=== PATIENT | male | born 1955 | race Caucasian/White ===

== ENCOUNTER 2023-07-21 17:51 | Emergency (ER) | payer BC, SELFPAY ==
[2023-07-21 17:56] VITALS: BP 119/64
[2023-07-21 19:03] VITALS: BP 132/72
--- NOTE | 2023-07-21 19:10 | ED.GENMED ---
History of Present Illness
<Rashi Chicas PA-C - Last Filed: 07/21/23 20:28>
General
Chief Complaint: Breathing Problem
Source: patient
Exam Limitations: none
Time Seen by Provider: 07/21/23 18:40
Travel History
Have you had any contact with someone who has COVID-19?: No
Do you have any symptoms of coronavirus? Fever > 100 degrees, chills, cough, shortness of breath, sore throat, loss of taste or smell, muscle aches, or headache?: No
History of Present Illness
History of Present Illness:
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 He also notes vomiting. He last had a paracentesis about 3 weeks ago which 6 L were drained. He feels
like he needs more fluid drained. He feels short of breath secondary to the compression from his abdomen. No other complaints at this time
Past History
<Rashi Chicas PA-C - Last Filed: 07/21/23 20:28>
Past History
ED Past Medical History: Cancer (Pancreatic, colon), HTN, Hypothyroidism and Other (GI bleed, varices, gastric ulcer)
Social History
Tobacco: Former smoker
Phy Exam
<Rashi Chicas PA-C - Last Filed: 07/21/23 20:28>
Physical Exam
Physical Exam:
General: Cachectic appearing male vomiting upon entrance into the room
HEENT: Normocephalic mucosa dry
Heart: Regular rate and rhythm
Lungs: Clear no wheeze
Abdomen: Slightly distended but soft no significant tenderness noted
Extremities: No cyanosis
Scores
<Rashi Chicas PA-C - Last Filed: 07/21/23 20:28>
Heart Failure Risk
Heart Failure Risk Score: Not Applicable
Course
<Rashi Chicas PA-C - Last Filed: 07/21/23 20:28>
Orders/Labs/Results
Orders:
Orders
07/21/23 19:04
Complete Blood Count/With Diff Urgent
Comprehensive Metabolic Panel Urgent
Lipase Urgent
07/21/23 19:07
Ondansetron Orally Disint [Zofran Odt (Orally Disintegrating)] 4 mg PO NOW STA
07/21/23 19:15
Lactic Acid Q4H
Comment: CANCEL 2nd LACTIC ACID IF 1st LACTIC ACID IS LESS THAN 2
07/21/23 23:15
Lactic Acid Q4H
Comment: CANCEL 2nd LACTIC ACID IF 1st LACTIC ACID IS LESS THAN 2
Vital Signs
Initial and Last Documented VS:
Initial Vital Signs
Temp Pulse Resp BP Pulse Ox
97.7 F 72 20 119/64 99
07/21/23 17:56 07/21/23 17:56 07/21/23 17:56 07/21/23 17:56 07/21/23 17:56
Last Documented Vital Signs
Temp Pulse Resp BP Pulse Ox
97.7 F 68 14 96/51 100
07/21/23 17:56 07/21/23 20:00 07/21/23 20:00 07/21/23 20:03 07/21/23 19:04
<Linn Rehman MD - Last Filed: 07/21/23 20:25>
Orders/Labs/Results
Orders:
Orders
07/21/23 19:04
Complete Blood Count/With Diff Urgent
Comprehensive Metabolic Panel Urgent
Lipase Urgent
07/21/23 19:07
Ondansetron Orally Disint [Zofran Odt (Orally Disintegrating)] 4 mg PO NOW STA
07/21/23 19:15
Lactic Acid Q4H
Comment: CANCEL 2nd LACTIC ACID IF 1st LACTIC ACID IS LESS THAN 2
07/21/23 23:15
Lactic Acid Q4H
Comment: CANCEL 2nd LACTIC ACID IF 1st LACTIC ACID IS LESS THAN 2
Vital Signs
Initial and Last Documented VS:
Initial Vital Signs
Temp Pulse Resp BP Pulse Ox
97.7 F 72 20 119/64 99
07/21/23 17:56 07/21/23 17:56 07/21/23 17:56 07/21/23 17:56 07/21/23 17:56
Last Documented Vital Signs
Temp Pulse Resp BP Pulse Ox
97.7 F 68 14 96/51 100
07/21/23 17:56 07/21/23 20:00 07/21/23 20:00 07/21/23 20:03 07/21/23 19:04
<Rashi Chicas PA-C - Last Filed: 07/21/23 20:28>
MDM/Problems Addressed
Differential Diagnosis Includes:
Vomiting abdominal swelling. Question recurrent a ascites versus bowel obstruction versus pancreatitis. Check labs. Rhiannon ordered ODT. Patient's abdomen is not rigid there is no fever. Do not suspect SBP.
<Rashi Chicas PA-C - Last Filed: 07/21/23 20:28>
*Critical Care Note
Total Time (30-74mins, 75-104mins- exclusive of procedures): Not Applicable
<Rashi Chicas PA-C - Last Filed: 07/21/23 20:28>
Update Note
Update Note:
Patient refusing blood work he is refusing IV. He is requesting urgent paracentesis however I explained there is no justification for urgent paracentesis as he has no fever his abdomen exam is benign he is 100% on room air. He is vomiting there is
some red color to the vomit. Question possible upper GI bleeding or variceal bleeding as he has a history of this. Patient states he just had soup and this is his soup. He is denying any bleeding. He actually wants to go home. He states he will
rest here in the hospital I had a discussion about keeping him here overnight for treatment of his discomfort and nausea and potentially for a paracentesis in the morning. He does not want to wait here in the hospital. I also explained that he may
be bleeding and going home could be a detriment. He understood this. His daughter now accompanies him who also try to get the patient to stay. Patient signed AGAINST MEDICAL ADVICE.
Return precautions given. He will follow-up with his treating team
ED Attending Note
<Rashi Chicas PA-C - Last Filed: 07/21/23 20:28>
-
Portions of this chart may have been created with voice recognition software.� Occasional wrong word or��sound alike� substitutions may have occurred due to the inherent limitations of voice recognition software.
<Linn Rehman MD - Last Filed: 07/21/23 20:25>
ED Attending Note
Patient seen and examined by attending physician: Yes
ED Attending Note:
Case reviewed with J Luis REYES, I also sat down and spoke with patient encouraging him to stay overnight in the hospital. I am concerned as is the rest of our team, that his symptoms are more serious than just ascites, and he compensated overnight.
He is adamant about leaving the hospital and not staying here overnight, but does state that he will return in the morning for reassessment. Patient is overall comfortable in his breathing, speaks in full sentences. Vital signs noted. Again
emphasized to patient strong recommendation to allow us to do testing treatment and further care here.
Discharge Plan
Departure
Patient Disposition: Against Medical Advice
Date of Disposition: 07/21/23
Time of Disposition: 20:28
Patient with high blood pressure during this ER visit?: No
Discharge Problem:
Vomiting
Prescriptions:
No Action
sertraline 100 MG tablet
150 mg PO DAILY
levothyroxine 50 mcg tablet
50 mcg PO DAILY
furosemide 20 mg tablet
40 mg PO DAILY
pantoprazole 40 mg tablet,delayed release (DR/EC)
40 mg PO BID
Referrals:
Jah Lyons MD [Family Provider] -
Activity Restrictions/Additional Instructions:
Please return here for worsening symptoms
Interventions
Interventions:
*Risk Screen - Suicide Last Done: 07/21/23 17:56
*General Assessment Last Done: 07/21/23 17:56
*Neglect/Abuse Screening Last Done: 07/21/23 17:56
ED- Fall Risk Assessment Last Done: 07/21/23 19:06
ED- Cardiac Assessment Last Done: 07/21/23 19:06
ED- Pulmonary Assessment Last Done: 07/21/23 19:06
Discharge Date and Time
Print Language: SWEDISH
[2023-07-21] MEDS: ZOFRAN ODT (ORALLY DISINTEGRATING) 4 MG PO ×2 (19:21→21:16)
[2023-07-21 20:02] VITALS: BP 96/51
[2023-07-21 20:03] VITALS: BP 96/51
== END 2023-07-21 21:45 | disposition left against medical advice (07) ==
LOC: EMR 17:51
PROVIDERS: EMERGENCY PHYSICIAN Emergency Medicine; FAMILY PHYSICIAN Internal Medicine
DX: R11.10 Vomiting, unspecified (principal); R06.02 Shortness of breath; R64 Cachexia; R14.0 Abdominal distension (gaseous); Z53.29 Procedure and treatment not carried out because of patient's decision for other reasons; C25.9 Malignant neoplasm of pancreas, unspecified; I10 Essential (primary) hypertension; E03.9 Hypothyroidism, unspecified; F32.A Depression, unspecified; Z85.038 Personal history of other malignant neoplasm of large intestine; Z87.11 Personal history of peptic ulcer disease; Z87.891 Personal history of nicotine dependence
CPT/HCPCS: 99283

== ENCOUNTER 2023-07-23 07:59 | Inpatient (IN) | payer BC, MEDICARE, SELFPAY ==
[2023-07-23] VITALS (43 sets, daily range): BP systolic 70–124; BP diastolic 54–71; BMI 18.4
[2023-07-23] MEDS: ZOFRAN ODT (ORALLY DISINTEGRATING) 4 MG PO ×2 (04:17→05:25)
--- NOTE | 2023-07-23 04:45 | ED.GENMED ---
History of Present Illness
<Wily Granado DO - Last Filed: 07/23/23 06:19>
General
Chief Complaint: Abdominal Symptoms
Source: patient and ambulance crew
Exam Limitations: none
Time Seen by Provider: 07/23/23 04:18
Nursing documentation reviewed up to this point in time: agreed with
Travel History
Have you had any contact with someone who has COVID-19?: No
Do you have any symptoms of coronavirus? Fever > 100 degrees, chills, cough, shortness of breath, sore throat, loss of taste or smell, muscle aches, or headache?: No
History of Present Illness
History of Present Illness:
68-year-old male presents via EMS for persistent nausea and vomiting. Patient has a history of pancreatic cancer and states that he frequently gets nauseated. Patient has a neuroendocrine pancreatic tumor. He gets his treatment at [facility]
in [place]. Patient typically has paracenteses. Last 1 was several weeks ago where he had 6 L drained. Patient feels that he needs to be drained again.
Past History
<Wily Granado DO - Last Filed: 07/23/23 06:19>
Past History
ED Past Medical History: Cancer (Pancreatic, colon), HTN, Hypothyroidism and Other (GI bleed, varices, gastric ulcer)
Social History
Tobacco: Former smoker
Phy Exam
<Wily Granado DO - Last Filed: 07/23/23 06:19>
General Physical Exam
General Presentation: mild distress
General Skin: warm and pale
General Hydration: appears well hydrated
Pulmonary Exam
Pulmonary Exam: lungs clear and no respiratory distress
Gastrointestinal Exam
Gastrointestinal Exam: normal bowel sounds, distended and guarding
Auscultation of Abdomen: normal
Liver Exam: ascites
Neurological Exam
Neurological Exam: alert and oriented x3
Musculoskeletal Exam
Musculoskeletal Exam: full ROM
Skin Exam
Skin Exam: warm/dry and pallor
Psychiatric Exam
Psychiatric Exam: normal mood/affect
Course
<Wily Granado, DO - Last Filed: 07/23/23 06:19>
Orders/Labs/Results
Orders:
Orders
07/23/23 04:15
Ondansetron Orally Disint [Zofran Odt (Orally Disintegrating)] 4 mg .ROUTE .STK-MED ONE
07/23/23 04:17
Ondansetron Orally Disint [Zofran Odt (Orally Disintegrating)] 4 mg PO NOW STA
07/23/23 04:44
Ondansetron Orally Disint [Zofran Odt (Orally Disintegrating)] 4 mg PO NOW STA
07/23/23 05:26
Urinalysis Reflex To Culture Urgent
Date Specimen was Collected: 07/23/23
Time Specimen was Collected: 06:58
07/23/23 06:06
Consult Interventional Radiology [IRAD CONSULT] Urgent
Consulting Provider: Filiberto Courtney
Was physician already notified: No
Reason for Consult/Procedure: paracentesis
Acknowledgement that appropriate orders are entered: Yes
07/23/23 06:07
Consult Notification Routine
Specialty to Notify: IRAD (Interventional Radiology)
07/23/23 06:08
Complete Blood Count/With Diff Urgent
Comprehensive Metabolic Panel Urgent
Lipase Urgent
07/23/23 06:32
* Blood Bank Products Urgent
Blood Bank Products: *Packed RBC Leuko(PRBC's)
Quantity: 2
Transfuse Today: Yes
Reason: Anemia
Type And Crossmatch Urgent
07/23/23 06:33
Pantoprazole [Protonix IV] 80 mg IV NOW STA
07/23/23 07:12
Ondansetron Injectable [Zofran] 4 mg IV NOW STA
Abnormal Lab Results
07/23/23
06:08
WBC 11.3 H 10^3/uL
(4.8-10.8)
RBC 2.65 L 10^6/uL
(4.70-6.10)
Hgb 6.0 L* g/dL
(13.0-18.0)
Hct 18.3 L* %
(39.0-52.0)
MCV 69.1 L fL
(80.0-94.0)
MCH 22.6 L pg
(27.0-31.0)
MCHC 32.8 L g/dL
(33.0-37.0)
RDW 22.6 H %
(11.5-14.5)
Plt Count 422 H 10^3/uL
(130-400)
Abs Immat Gran (auto) 0.1 H 10^3/uL
(0-0.05)
Absolute Neuts (auto) 9.9 H 10^3/uL
(1.4-6.5)
Absolute Lymphs (auto) 0.4 L 10^3/uL
(1.2-3.4)
Absolute Monos (auto) 0.9 H 10^3/uL
(0.1-0.6)
Neutrophils % 87.6 H %
(42.2-75.2)
Lymphocytes % 3.4 L %
(20.5-51.1)
Sodium 131 L mmol/L
(135-145)
Chloride 94 L mmol/L
(98-107)
BUN 39 H mg/dl
(9-20)
Glucose 146 H mg/dl
(70-99)
Albumin 2.9 L g/dl
(3.5-5.0)
07/23/23 06:08
07/23/23 06:08
Vital Signs
Initial and Last Documented VS:
Initial Vital Signs
Pulse Resp BP Pulse Ox
75 20 124/71 100
07/23/23 04:08 07/23/23 04:08 07/23/23 04:08 07/23/23 04:08
Last Documented Vital Signs
Pulse Resp BP Pulse Ox
67 20 105/65 98
07/23/23 06:26 07/23/23 06:26 07/23/23 06:26 07/23/23 06:26
<Binh Alvarado, DO - Last Filed: 07/23/23 07:17>
Orders/Labs/Results
Orders:
Orders
07/23/23 04:15
Ondansetron Orally Disint [Zofran Odt (Orally Disintegrating)] 4 mg .ROUTE .ST-MED ONE
07/23/23 04:17
Ondansetron Orally Disint [Zofran Odt (Orally Disintegrating)] 4 mg PO NOW STA
07/23/23 04:44
Ondansetron Orally Disint [Zofran Odt (Orally Disintegrating)] 4 mg PO NOW STA
07/23/23 05:26
Urinalysis Reflex To Culture Urgent
Date Specimen was Collected: 07/23/23
Time Specimen was Collected: 06:58
07/23/23 06:06
Consult Interventional Radiology [IRAD CONSULT] Urgent
Consulting Provider: Filiberto Courtney
Was physician already notified: No
Reason for Consult/Procedure: paracentesis
Acknowledgement that appropriate orders are entered: Yes
07/23/23 06:07
Consult Notification Routine
Specialty to Notify: IRAD (Interventional Radiology)
07/23/23 06:08
Complete Blood Count/With Diff Urgent
Comprehensive Metabolic Panel Urgent
Lipase Urgent
07/23/23 06:32
* Blood Bank Products Urgent
Blood Bank Products: *Packed RBC Leuko(PRBC's)
Quantity: 2
Transfuse Today: Yes
Reason: Anemia
Type And Crossmatch Urgent
07/23/23 06:33
Pantoprazole [Protonix IV] 80 mg IV NOW STA
07/23/23 07:12
Ondansetron Injectable [Zofran] 4 mg IV NOW STA
Abnormal Lab Results
07/23/23
06:08
WBC 11.3 H 10^3/uL
(4.8-10.8)
RBC 2.65 L 10^6/uL
(4.70-6.10)
Hgb 6.0 L* g/dL
(13.0-18.0)
Hct 18.3 L* %
(39.0-52.0)
MCV 69.1 L fL
(80.0-94.0)
MCH 22.6 L pg
(27.0-31.0)
MCHC 32.8 L g/dL
(33.0-37.0)
RDW 22.6 H %
(11.5-14.5)
Plt Count 422 H 10^3/uL
(130-400)
Abs Immat Gran (auto) 0.1 H 10^3/uL
(0-0.05)
Absolute Neuts (auto) 9.9 H 10^3/uL
(1.4-6.5)
Absolute Lymphs (auto) 0.4 L 10^3/uL
(1.2-3.4)
Absolute Monos (auto) 0.9 H 10^3/uL
(0.1-0.6)
Neutrophils % 87.6 H %
(42.2-75.2)
Lymphocytes % 3.4 L %
(20.5-51.1)
Sodium 131 L mmol/L
(135-145)
Chloride 94 L mmol/L
(98-107)
BUN 39 H mg/dl
(9-20)
Glucose 146 H mg/dl
(70-99)
Albumin 2.9 L g/dl
(3.5-5.0)
07/23/23 06:08
07/23/23 06:08
Vital Signs
Initial and Last Documented VS:
Initial Vital Signs
Pulse Resp BP Pulse Ox
75 20 124/71 100
07/23/23 04:08 07/23/23 04:08 07/23/23 04:08 07/23/23 04:08
Last Documented Vital Signs
Pulse Resp BP Pulse Ox
67 20 105/65 98
07/23/23 06:26 07/23/23 06:26 07/23/23 06:26 07/23/23 06:26
<Wily Granado DO - Last Filed: 07/23/23 06:19>
MDM/Problems Addressed
Differential Diagnosis Includes:
Ascites, now fluid overload, abdominal distention
MDM/Problems Addressed:
68-year-old male history of pancreatic neuroendocrine tumor,, bile duct stent, hypertension, hypothyroidism, rectal cancer, gastric varices, hyperlipidemia, mild hyperglycemia, gastric ulcers
Chronic conditions affecting care:
See above
<Wily Granado DO - Last Filed: 07/23/23 06:19>
*Pulse Oximetry
Patient hypoxic: no
*Critical Care Note
Total Time (30-74mins, 75-104mins- exclusive of procedures): Not Applicable
<Wily Granado DO - Last Filed: 07/23/23 06:19>
Patient Management
Social determinants of health affecting care: Poor social support
<DO Vickey Farmer Last Filed: 07/23/23 06:19>
Update Note
Update Note:
07/23/2023 0446 AM: Patient is refusing IV access. He is also refusing blood work stating that he is a 'tough stick '. Patient does want paracentesis and though I would agree that he needs it, he has no fevers and this problem is not acute. He is
satting normally on room air. Patient will consider getting blood work.
<Binh Alvarado, DO - Last Filed: 07/23/23 07:17>
Update Note
Update Note:
07/23/2023 0446 AM: Patient is refusing IV access. He is also refusing blood work stating that he is a 'tough stick '. Patient does want paracentesis and though I would agree that he needs it, he has no fevers and this problem is not acute. He is
satting normally on room air. Patient will consider getting blood work.
The patient has hemoglobin of 6.0 today. Hemoglobin last September was 7.1. I performed digital rectal examination and this was briskly heme positive very dark brown stool. Will give a dose of Protonix. Planning blood transfusion.
ED Attending Note
<Wily Granado, DO - Last Filed: 07/23/23 06:19>
-
Portions of this chart may have been created with voice recognition software.� Occasional wrong word or��sound alike� substitutions may have occurred due to the inherent limitations of voice recognition software.
Discharge Plan
Departure
Prescriptions:
No Action
sertraline 100 MG tablet
150 mg PO DAILY
levothyroxine 50 mcg tablet
50 mcg PO DAILY
furosemide 20 mg tablet
40 mg PO DAILY
pantoprazole 40 mg tablet,delayed release (DR/EC)
40 mg PO BID
Referrals:
NONE,* [Family Provider] -
Interventions
Interventions:
*Risk Screen - Suicide Last Done: 07/23/23 04:08
*General Assessment Last Done: 07/23/23 04:08
*Neglect/Abuse Screening Last Done: 07/23/23 04:08
ED- Fall Risk Assessment Last Done: 07/23/23 04:08
*ED COVID-19 Vaccine History Last Done: 07/23/23 04:08
GI-Pzydvk-Hkqdafszkz Assessment Last Done: 07/23/23 04:19
Discharge Date and Time
Print Language: CITIZEN OF [place]
[2023-07-23 06:22] LABS: % Basophils 0.3 % (0-2); % Eosinophils 0.1 % (0-6); % Immature Granulocytes 0.4 % (0-0.5); % Lymphocytes 3.4 % (20.5-51.1); % Monocytes 8.2 % (1.7-9.3); % Neutrophils 87.6 % (42.2-75.2); Absolute Immature Granulocytes 0.1 10^3/uL (0-0.05); Absolute Lymphocytes 0.4 10^3/uL (1.2-3.4); Absolute Monocytes 0.9 10^3/uL (0.1-0.6); Absolute Neutrophils 9.9 10^3/uL (1.4-6.5); Mean Corp Hgb Conc. 32.8 g/dL (33.0-37.0); Mean Corpuscular Hgb 22.6 pg (27.0-31.0); Mean Corpuscular Volume 69.1 fL (80.0-94.0); Mean Platelet Volume 9.2 fL (7.4-10.4); Nucleated Red Blood Cells % 0 % (-); Platelet Count 422 10^3/uL (130-400); Red Blood Cell Count 2.65 10^6/uL (4.70-6.10); Red Cell Dist. Width 22.6 % (11.5-14.5); White Blood Cell Count 11.3 10^3/uL (4.8-10.8)
[2023-07-23 06:26] LABS: Hematocrit 18.3 % (39.0-52.0)
[2023-07-23 06:40] LABS: ALT (SGPT) < 10 U/L (0-50); AST (SGOT) 31 U/L (17-59); Albumin 2.9 g/dl (3.5-5.0); Alkaline Phosphatase 76 U/L (38-126); Blood Urea Nitrogen 39 mg/dl (9-20); Calcium 8.7 mg/dl (8.4-10.2); Carbon Dioxide 26 mmol/L (22-30); Chloride 94 mmol/L (98-107); Estimated Creatinine Clearance 78 ml/min; Glucose 146 mg/dl (70-99); Lipase 112 U/L (23-300); Sodium 131 mmol/L (135-145); Total Bilirubin 0.8 mg/dl (0.2-1.3); Total Protein 6.3 g/dl (6.3-8.2); eGFR > 60.00
[2023-07-23 06:59] LABS: Anisocytosis 2+; Microcytosis 1+; Normal RBC Morphology No
[2023-07-23 07:00] LABS: Acanthocytes 1+; Hypochromasia 1+; Target Cells 1+
[2023-07-23 07:02] LABS: Burr Cells 1+
[2023-07-23 07:05] LABS: Ovalocytes 1+
[2023-07-23] MEDS: ZOFRAN 4 MG IV ×2 (07:19→19:52)
[2023-07-23] MEDS: PROTONIX IV 80 MG IV (07:20)
[2023-07-23] MEDS: DILAUDID 1 MG IV (07:20)
--- NOTE | 2023-07-23 07:35 | EDRN ---
the pt was received from previous retail shift manager RN, the pt is resting in stretcher in the lowest position, side rails up x2, call tovar within reach, HOB elevated, the pt started to rip off cafeteria monitor and stated to this RN, 'You people need to
help me, i don't want this shit on and i need a paracentesis, and i am nauseous and i am in so much pain in my stomach', this RN attempted to calm the pt down and asked the pt if this RN could please place the pt back on the monitor and the pt was
compliant, this RN apologized to the pt for his frustration, the pt apologized to this RN, the pt was given Zofran IV for nausea, and Dilaudid IV for pain, the pt was compliant with this RN drawing blood, this RN orion and sent Type and Screen, VS
WNL, will continue to monitor the pt closely
--- NOTE | 2023-07-23 07:49 | EDRN ---
Dr. Avelar currently at the pts bedside speaking with the pt, this RN notified the provider that the pt is a tough stick, this RN notified the provider that the pt has a RAC #[address] however that is the only access that the pt has, this RN
discussed to Dr. Avelar about the pt needing blood products and this RN inquired about a midline, per provider a midline is to be placed
--- NOTE | 2023-07-23 07:51 | EDRN ---
IR team called this RN in regards to the pts paracentesis, verbal report given, the pt is to go up now, this RN discussed with the IR RN that the pt is ordered blood and per the IR RN their provider in IR wants the pt to come to IR now and have the
blood transfused after, this was relayed to Dr. Avelar
--- NOTE | 2023-07-23 07:52 | HPS.HSE ---
Addendum entered and electronically signed by Armin Avelar DO 07/23/23 14:02:
I spoke with gastroenterology, Dr. Garcia. Apparently she spoke with the patient's ex- who is the patient's decision maker. Apparently there was talks about hospice prior to this hospitalization. She still wants to pursue hospice and does
not want a transfer to tertiary care center. Hospice consult placed to discuss goals of care with family.
Original Note:
Family Physician
-
Family Physician: * NONE
Chief Complaint
-
Nausea and vomiting, ascites
History of Present Illness
68-year-old male with a history of neuroendocrine pancreatic cancer, presented to the emergency room on July 20 for evaluation of increased abdominal girth and vomiting. Refused labs and demanded paracentesis. Emergency room tried to convince him
to stay and get admitted to the hospital but he signed out AMA.
He returns to the emergency room today complaining of similar symptoms and is now willing to stay.
Admits to 10 pound weight loss over the past few months. Of note he is a very poor and limited historian and does not remember answers to multiple questions including details of his medical history.
Medical History
Past Medical History
Past Medical History: Reports Other
Additional Past Medical History:
Pancreatic neuroendocrine tumor involving pancreatic head
Gastroesophageal varices
Essential hypertension
Hypothyroidism
History of rectal cancer
Gastric ulcer
Colon polyps
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
Recurrent ascites
Past Surgical History: Reports Other
Additional Past Surgical History:
Rectal cancer resection low anterior, 2011
Ventral hernia repair 2013
Inguinal hernia repair 1955
Tongue reconstructive surgery 1962
Common bile duct stent
Social History
Tobacco: Former Smoker
Alcohol: None
Drug: None
Personal:
Living: Alone
Family History
Family History: Not pertinent
Allergies / Home Medications
Allergies reflects when Allergies were last updated in [employer].
Home Medications with original date entered in [employer]
Allergy/Medication List:
Allergies
Allergy/AdvReac Type Severity Reaction Status Date / Time
No Known Allergies Allergy Verified 07/23/23 04:08
Home Medications
sertraline 100 mg tablet 150 mg PO DAILY Mental Health/Anxiety 06/11/21
furosemide 20 mg tablet 40 mg PO DAILY Fluid Retention/Swelling 08/26/22
levothyroxine 50 mcg tablet 50 mcg PO DAILY Thyroid 08/26/22
pantoprazole 40 mg tablet,delayed release 40 mg PO BID Gastrointestinal Issue 09/11/22
Review of Systems
-
History Source: Patient
A 12 point ROS was completed and negative except as noted: Yes
Abdomen/GI: Reports Nausea and Vomiting
Physical Exam
Vital Signs
Vital Signs
Temp Pulse Resp BP Pulse Ox
98.1 F 78 16 110/64 100
07/23/23 07:45 07/23/23 07:45 07/23/23 07:45 07/23/23 07:45 07/23/23 07:45
Physical Exam
General: No Apparent Distress, Comfortable, Appears Chronically Ill and Other (Cachectic)
HEENT: NormoCephalic and Anicteric
Respiratory: Clear
Cardiac: S1/S2 and Regular Rhythm
GI: Soft, Tender and Distended
Genito-urinary: Deferred by me
Musculoskeletal: No Clubbing, No Cyanosis and No Edema
Skin: Warm and Dry
Neuro: AO x 3
Hematologic/Lymphatic: No Lymphadenopathy
Psych: Calm
Laboratory Results
-
07/23/23 06:08
07/23/23 06:08
Laboratory Results
Total Bilirubin 0.8 mg/dl (0.2-1.3) 07/23/23 06:08
AST 31 U/L (17-59) 07/23/23 06:08
ALT < 10 U/L (0-50) 07/23/23 06:08
Alkaline Phosphatase 76 U/L (38-126) 07/23/23 06:08
Lipase 112 U/L (23-300) 07/23/23 06:08
Impression/Plan
-
Acute GI bleed -heme positive stool noted in the emergency room. Relatively hemodynamically stable. Admit to IMU. N.p.o., consult GI. Etiology of GI bleed unclear, he does have a history of bleeding gastroesophageal varices as well as a gastric
ulcer.
Acute blood loss anemia -due to acute GI bleed. Hemoglobin 6.0. 2 units of blood for transfusion ordered by the emergency room. Baseline hemoglobin unknown but was 7.1 in September of last year. MCV 69.1 suggestive of iron deficiency anemia. Will
check anemia labs.
Hyponatremia -sodium 131. Etiology unclear but could be related to ascites, diuretic therapy, hypovolemia, etc. Check urine studies.
Pancreatic neuroendocrine tumor -treated at [facility] in [place].
Gastroesophageal varices
History of gastric ulcer
History of rectal cancer
Essential hypertension -relative hypotension, blood pressure 105/65. Hold antihypertensives for now.
Hypothyroidism -awaiting update of home medication list. Check TSH.
DNR -confirmed with patient.
[2023-07-23 08:18] LABS: Reticulocyte Count 2.9 % (0.4-2.8)
--- NOTE | 2023-07-23 08:26 | PHANOTE ---
Addendum entered by Jomar Fuller 07/23/23 09:18:
07/23/2023, pt. obtunded at time of interview but states that he has never taken Metformin 500 mg BID or Basaglar Kwikpen; pt. confused about his remaining meds. that he fills at the pharmacy.
Original Note:
07/23/2023, med rec tech, pt. in IRAD at time of interview; pt. manages their own meds.; [facility] records are outdated; used pharmacy fill data to compile a list of pt.'s meds.
--- NOTE | 2023-07-23 08:38 | EDRN ---
IR called this RN for report, VS stable, 2250 out, Right lateral wound site from paracentesis
[2023-07-23 08:44] LABS: Iron < 20 ug/dl (49-181)
--- NOTE | 2023-07-23 08:48 | EDRN ---
IV team is aware that the pt needs a midline placed, the pt has arrived back from IR, VS WNL, no c/o pain
[2023-07-23 08:57] LABS: Percent Saturation 7.99999 % (20-50); Total Iron Binding Capacity 250 ug/dl (261-462)
--- NOTE | 2023-07-23 09:02 | EDRN ---
the pts RAC #[address] was checked by this RN and the PIV flushes well with no s/s of phlebitis or infiltration however there is no blood return, this RN spoke with ER provider Dr. Alvarado and Dr. Avelar and it was discussed that the
blood will not be administered until midline is placed, this RN did try to attempt to place a second PIV however this RN was unsuccessful, IV team will be down to place midline
--- NOTE | 2023-07-23 09:04 | EDRN ---
this RN processed the pts orders, and this RN notified pharmacy
[2023-07-23 09:08] LABS: Body Fluid Mononuclear 23.7 %; Body Fluid Polymorphonuclear 76.3 %; Body Fluid WBC 5891 /CUMM
[2023-07-23 09:35] LABS: Ferritin 78.5 ng/ml (17.9-464.0)
[2023-07-23] MEDS: SANDOSTATIN 500.600000000000023 MCG IV ×2 (09:37→21:12)
[2023-07-23 09:38] LABS: Body Fluid Second Tech AMA
[2023-07-23] MEDS: PROTONIX 100 IV ×2 (09:38→19:45)
--- NOTE | 2023-07-23 09:40 | EDRN ---
Pantoprazole gtt, octreotide gtt, and IVF currently hung and running, the pt is resting in stretcher in the lowest position, side rails up x2, call tovar within reach, HOB elevated, VS WNL, will continue to monitor the pt closely
[2023-07-23] MEDS: NSS 1000 IV ×2 (09:41→19:45)
[2023-07-23 10:07] LABS: Folate 11.2 ng/ml (2.76-20); Vitamin B12 959 pg/ml (239-931)
--- NOTE | 2023-07-23 10:09 | CON.GI ---
Addendum entered and electronically signed by Gisell Garcia DO 07/23/23 13:29:
I saw and examined the patient.
The CLIP RIVETER or PA's note was reviewed and I agree with the note.
Comment: Smooth Batista is a very medically complex, 68 y.o. 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
involvement as well as non-cirrhotic portal HTN due to occlusion of SMV and resultant elevated portal pressures resulting in esophageal, gastric, duodenal and rectal varices and recurrent ascites who presents from home with nausea, vomiting and
abdominal distension.
On exam, patient appears chronically ill, cachectic, with temporal wasting. He is AAOx3, however, extremely poor historian and unable to provide any history. I was able to obtain extensive reports from recent admission at [facility] from
07/08-07/17, after initially presenting6 to [facility], found to be in septic and hemorrhagic shock with bacteremia, BCX+GPC, transferred to [facility] for higher level of care. He underwent EGD and Flex Sig on 07/08, evidence of esophageal, gastric and
duodenal varices, flex sig with melenic residue, unable to visualize fully to examine rectal varices. He then had a CTA on 07/09, followed by IR partial gastric artery emoblization of gastric tumor. Paracentesis performed was negative for SBP,
however, performed following administration of antibiotics. Cytology from ascitic fluid was negative. Ultimately, recommended he have PICC placed for prolonged abx and rehab, but patient refused and left AMA. He returns now with a hemoglobin of 6
-->5.8, dark heme positive stool, paracentesis performed with removal of 2250 cc of clear yellow ascitic fluid fluid, positive for SBP, with WBC 5891, +4,477 PMNS.
Recommendations:
-blood cultures
--Ascitic fluid + SBP, given high PMN count, needs imaging to rule out microperforation
--2g Ceftriaxone, 1.5 g/kg albumin day 1, 1g/kg on day 3
-hold diuretics and beta aidee
-PPI gtt, Octreotide gtt
-Blood transfusion for Hgb <7
-No plans for endoscopic intervention-- patient is extremely complex with multiple bleeding sources, would require transfer to tertiary care center for higher level of care. Ultimately need to discuss hospice vs. transfer. Can continue to support
him here while stable, however, need to establish patient and family wishes DARION, prior to patient further decompensating and becoming unstable
Addendum entered and electronically signed by Myesha Mckeon NP 07/23/23 10:55:
Per outpatient records he is on carvedilol 6.25 mg p.o. twice daily likely secondary to his portal hypertension and history of esophageal gastric varices.
Original Note:
Consultation
-
Date/Time Consultation Requested: 07/23/23
Date/Time Consultation Performed: 07/23/23 @ 9:45
Requesting Provider: Dr. Avelar
Performing Provider: WOOD Petty; Dr. Chaparrita Armas
Reason for Consultation: GI bleed, ascites
Medical History
Chief Complaint / HPI
Chief Complaint: nausea, vomiting, abdominal distention
History of Present Illness:
The patient is a 68-year-old male with a past medical history significant for pancreatic neuroendocrine tumor diagnosed in June 2021 status post placement of biliary stent followed at [facility] with Dr. Koby King, esophageal varices with
bleeding, gastric varices, hypertension, hypothyroidism, recurrent ascites undergoing paracentesis at least once monthly at [facility], history of rectal cancer, who presented to the emergency room with complaints of nausea, vomiting, and abdominal
distention. We are being asked to evaluate for concern for GI bleed and ascites. Upon review of prior records, the patient was admitted last August secondary to hematemesis with concern for acute bleeding. He had 3 columns of large esophageal
varices along with gastric varices extending along the lesser curvature of the stomach. At that time no intervention was done and he was continued on octreotide infusion. He was transferred to [facility] for further intervention given the presence
of gastric varices. He reportedly did not undergo TIPS procedure at that time instead was treated with banding for esophageal varices and cyanoacrylate injection. He presented again in September with recurrent hematemesis. He underwent urgent EGD
which did show recurrent esophageal varices with ulceration from prior banding along with a large adherent clot with active bleeding from the ulcerated area which then again was banded and clipped. He did again have a presence of gastric varices in
the fundus though not actively bleeding. He again was continued on PPI drip and octreotide drip and again transferred to [facility] to consider TIPS procedure. He did also have evidence of portal hypertension thought to be secondary to portal and
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 He did undergo EUS/ERCP June 2021 which showed a mass in the pancreatic head stage T2 N0 MX by endosonographic criteria along with dilation of the
common bile duct up to 14 mm with ascites found endosonographically in the peritoneal cavity. ERCP showed a proximal CBD stricture status post and stent placement. Pathology consistent with well-differentiated pancreatic neuroendocrine tumor, CBD
brushings negative for malignant cells. The patient is a very poor historian but presented with complaints of nausea, vomiting, and abdominal distention. Several days ago he had called our office requesting an urgent paracentesis and he was
referred to the emergency room for further evaluation given reported shortness of breath and his complex medical history. ER records indicate he was seen in the emergency room but refused care and signed out AMA. He presents again with recurrent
similar complaints including significant abdominal distention. He is an extremely poor historian but notes that he was not feeling well prior to coming into the emergency room experiencing nausea with vomiting. He denies any hematemesis or other
signs of bleeding. He notes that his abdomen was more distended than usual but he does undergo paracentesis about once a month at [facility]. He follows with Dr. Koby King regarding care for his pancreatic tumor, which he reports he is
on Sandostatin for. Other history is difficult to obtain as he is in and out of sleeping. He denies any significant complaints of pain, dysphagia, or nausea currently He denies any obvious signs of bleeding such as melena or hematochezia. Per
nursing he did vomit once in the emergency room which was bilious in color. He reports his last colonoscopy was done within the last year but does not recall when or the results. As noted above he did report that he had an endoscopy about 1 month
ago out of [facility]. ER records indicate he did have dark brown but briskly heme positive stool. He underwent paracentesis with 20 to 50 mL removed with clear yellow ascitic fluid but with fluid cell counts concerning for SBP with white
blood cells of 5891 and PMN 76.3%. He was placed on octreotide and PPI drip given his hemoglobin of 6.0 and heme positive stool. Other pertinent lab findings included sodium 131, BUN 39, creatinine 0.7, serum iron less than 20, iron saturation
7.9, ferritin 78.5, lipase 112, blood WBC 11.3, MCV 69.1, platelets 422,000, reticulocyte count 2.9. 2 units of packed red blood cells were ordered and are pending. He was being admitted for further evaluation by GI for concern of GI bleed.
Past Medical History
Past Medical History: Cancer (History of rectal cancer status post lower anterior resection in 2011), GERD, HTN, Hypothyroidism and Other (Pancreatic neuroendocrine tumor followed at [facility], gastric varices, esophageal varices requiring
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
Past Surgical History: Bowel Resection (Lower anterior resection in 2011) and Other (Ventral hernia repair, inguinal hernia repair, tongue reconstruction surgery, CBD stent placement)
Social History
Tobacco: Former Smoker
Alcohol: None
Drug: None
Personal:
Family History
Family History: Reviewed & Not Pertinent
Allergies / Home Medications
Allergy/AdvReac Type Severity Reaction Status Date / Time
No Known Allergies Allergy Verified 07/23/23 04:08
�Medication �Instructions �Recorded
carvedilol 6.25 mg tablet 6.25 mg PO BID 07/23/23
diphenoxylate-atropine 2.5 1 tab PO QIDPRN PRN diarrhea 07/23/23
mg-0.025 mg tablet
furosemide 40 mg tablet 40 mg PO DAILY 07/23/23
levothyroxine 50 mcg tablet 50 mcg PO DAILY 07/23/23
pantoprazole 40 mg tablet,delayed 40 mg PO BID 07/23/23
release
sertraline 100 mg tablet 150 mg PO DAILY 07/23/23
Review of Systems
-
Unable to obtain full review of systems at this time due to: Acuity (Limited history from the patient)
History Source: Patient
All other systems: A 12 pt ROS was Negative except as stated above in HPI
Vital Signs
Temp Pulse Resp BP Pulse Ox
97.9 F 68 10 108/63 95
07/23/23 08:00 07/23/23 08:50 07/23/23 08:50 07/23/23 08:50 07/23/23 08:50
Physical Exam
Exam
General: Comfortable and Other (Extremely cachectic, pale, chronically ill-appearing male in no acute distress, )
HEENT: Normocephalic, Anicteric and Atraumatic
Respiratory: Clear (Overall diminished breath sounds, with mild labored breathing pattern)
Cardiac: S1/S2 and Regular Rhythm
Breast: Deferred by me
GI: Soft, Non Tender, Normal Bowel Sounds, Distended, Flat and Other
Rectal: Deferred by Provider and Other (Dark brown heme positive per ER rectal exam)
Musculoskeletal: No Edema
Skin: Warm and Dry
Neuro: Other (Oriented to person/place/time, drowsy but arousable)
Psych: Calm
Results
WBC 11.3 10^3/uL (4.8-10.8) H 07/23/23 06:08
Hgb 6.0 g/dL (13.0-18.0) L* 07/23/23 06:08
Hct 18.3 % (39.0-52.0) L* 07/23/23 06:08
MCV 69.1 fL (80.0-94.0) L 07/23/23 06:08
Plt Count 422 10^3/uL (130-400) H 07/23/23 06:08
Absolute Neuts (auto) 9.9 10^3/uL (1.4-6.5) H 07/23/23 06:08
Sodium 131 mmol/L (135-145) L 07/23/23 06:08
Potassium 4.0 mmol/L (3.5-5.1) 07/23/23 06:08
Chloride 94 mmol/L (98-107) L 07/23/23 06:08
Carbon Dioxide 26 mmol/L (22-30) 07/23/23 06:08
BUN 39 mg/dl (9-20) H 07/23/23 06:08
Creatinine 0.7 mg/dL (0.7-1.3) 07/23/23 06:08
Calcium 8.7 mg/dl (8.4-10.2) 07/23/23 06:08
Total Bilirubin 0.8 mg/dl (0.2-1.3) 07/23/23 06:08
AST 31 U/L (17-59) 07/23/23 06:08
ALT < 10 U/L (0-50) 07/23/23 06:08
Alkaline Phosphatase 76 U/L (38-126) 07/23/23 06:08
Lipase 112 U/L (23-300) 07/23/23 06:08
Diagnostic Image Results:
07/23/23 paracentesis: 2250mL clear ascitic fluid removed; fluid cell counts WBC 5891, PMN 76.3%
Prior GI Procedures:
EGD: 1 month ago at [facility] per pt (record not available to me)
09/15/2022, Dr. Tobar: Grade 2 esophageal varices found in the middle third of the esophagus and in the lower third of the esophagus with large amount of clot and ulcerated area from prior banding. Gastric varices and clot in the fundus although
likely not source of bleeding. No specimens collected.
08/25, Dr. Emil: Large greater than 5 mm esophageal varices with no bleeding and no stigmata of recent bleeding. Type I gastroesophageal varices extending along the lesser curvature without bleeding, but with recent stigmata of hemorrhage seen
from the cardiac side. Portal hypertensive gastropathy. Nodule found in the duodenum. No specimens collected.
06/11/2021, Dr. Lopez: 1 column of grade 2 esophageal varices. Small hiatal hernia. Portal hypertensive gastropathy. Erythematous duodenopathy with erosions. Random biopsies negative for celiac, H. pylori, or intestinal metaplasia of the stomach.
Colonoscopy: 06/11/2021, Dr. Lopez: Diminutive polyp at the rectosigmoid colon removed with jumbo cold forceps. Biopsies taken. Intrarectal prolapse. Random colon biopsies negative for collagenous colitis or other colitis. Rectal polypectomy
showing a tubular adenoma.
Assessment / Plan
-
The patient is a 68-year-old male with a past medical history significant for pancreatic neuroendocrine tumor diagnosed in June 2021 status post placement of biliary stent followed at [facility] with Dr. Koby King, esophageal varices with
bleeding, gastric varices, hypertension, hypothyroidism, recurrent ascites undergoing paracentesis at least once monthly at [facility], history of rectal cancer, who presented to the emergency room with complaints of nausea, vomiting, and abdominal
distention. We are being asked to evaluate for concern for GI bleed and ascites. 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
currently at [facility] with Dr. King. He has had recurrent admissions here last year for GI bleeding secondary to bleeding esophageal and gastric varices status post banding. He had was sent to [facility] for TIPS evaluation but is unclear as to
the results of this evaluation. He presents again today with nausea, vomiting, and abdominal distention found to have a hemoglobin of 6.0. He was placed on octreotide and PPI drip given his history of bleeding varices. Currently he is
hemodynamically stable pending blood transfusion. He underwent paracentesis for 2250 mL of clear ascitic fluid removed which is concerning for SBP given the significantly elevated WBC counts. He is lethargic but arousable and oriented. He denies
alcohol use
Problem list:
-Nausea, vomiting
-Abdominal distention, secondary to ascites with monthly paracentesis
-Severe microcytic anemia
-Leukocytosis
-History of bleeding esophageal and gastric varices
-History of pancreatic neuroendocrine tumor following with [facility] Dr. King
-Hyponatremia
-Severe iron deficiency
-Elevated BUN
-History of gastric ulcer
-History of portal and splenic vein thrombosis
Other pertinent medical history:
-Hypothyroidism
-Hypertension
-History of rectal cancer status post resection
-Portal hypertension
Recommendations:
-Etiology of anemia concerning for upper GI bleed given history of gastric and esophageal varices with dark brown heme positive stool. There is likely an chronic component to his anemia given his chronic medical problems. Reassuringly there is no
evidence of grossly active bleeding at this time, although given his drop of hemoglobin although we cannot rule out a slow bleed. He is overall hemodynamically stable.
-Agree with octreotide and PPI drip
-Close monitoring in the IMU. If any instability should be monitored in the ICU.
-Trend H&H and transfuse for hemoglobin less than 7, he is pending transfusion of 2 units (per nurse awaiting midline placement)
-Continue n.p.o.
-Peritoneal fluid cell count consistent with SBP, started on ceftriaxone 2 g IV daily. Await cytology and fluid culture. Will also obtain records from [facility] to see what his last paracentesis fluid cells showed/if they have a recent cytology. I
did also order blood cultures prior to the initiation of antibiotics.
-Avoid blood thinning agents
-Will need to obtain records from [facility] given the complexity of his history, he may require transfer to a tertiary center
-PRN antiemetic
-Will review diuretic regimen with Dr. Armas, per outpatient records was on Lasix 40 mg daily.
-To consider eventual EGD once stabilized, or if any signs of brisk bleeding
-Will place a call to his ex- Halley whom he designates as his wash crew person.
-Monitor electrolytes.
-Check INR
-Will follow closely
Data Reviewed
-
Old Records: Reviewed
-
-
Thank you for consultation and allowing me to participate in the patient's care. Please call the homemaking rehabilitation consultant GI physician during the after hours with any questions or concerns.
[2023-07-23] MEDS: STERILE WATER FOR INJECTION 20 ML IV (10:33)
[2023-07-23] MEDS: ROCEPHIN 2000 MG IV (10:33)
--- NOTE | 2023-07-23 10:53 | EDRN ---
IV team currently at the pts bedside
--- NOTE | 2023-07-23 11:56 | EDRN ---
the pt is sleeping in stretcher in the lowest position, side rails up x2, call tovar within reach, HOB elevated, NSR in the 60's, no c/o chest pain, no c/o SOB, RA Sp02 95%, IV team was able to place midline in the LUE, limb alert band placed, this
RN will send for blood
[2023-07-23 12:10] LABS: Hematocrit 18.3 % (39.0-52.0); Hemoglobin 5.8 g/dL (13.0-18.0)
[2023-07-23 12:11] LABS: INR 1.29
--- NOTE | 2023-07-23 12:12 | EDRN ---
midline was not documented by IV team yet, LUE midline
--- NOTE | 2023-07-23 12:17 | EDRN ---
Hgb came back at 5.8, this RN notified provider, Blood currently transfusing, VS WNL, the pt offers no complaints at this time, this RN at the pts bedside closely monitoring the pt, Pantoprazole gtt and Octreotide gtt and IVF currently still running
via Right arm PIV's
--- NOTE | 2023-07-23 12:38 | CM ---
Smooth was seen in ED yesterday, however he signed out AMA shortly after his arrival. He returned today and is currently in the ED with blood being hung. Plan is for admission to IMU. I attempted to complete assessment, however Smooth was not
open to speaking at the time of my visit.
Call placed to his ex-/next of kin (Nano Gallardo) at [phone] and voicemail left requesting return call to complete initial assessment.
CM will follow.
[2023-07-23] MEDS: FLEXBUMIN 100 IV ×3 (13:50→17:25)
[2023-07-23] MEDS: FLEXBUMIN 50 IV (13:50)
--- NOTE | 2023-07-23 14:12 | W.PN.UPDATE ---
Update Note
Progress Note Update
Called patient's POA, Ex-, Nano Gallardo [phone] to discuss patients clinical status with regards to his medical complexity and incurable malignancy, with options of transferring to tertiary care center for higher level of care and any
potential interventions for ongoing GI bleeding vs. pursuing hospice care. Patient and family had already started to discuss hospice, and at this time she feels this is what Smooth would want as well. He is awake and alert but not oriented at this
time. Nano would like to speak with hospice and start the process of transitioning now. Will continue with medications and transfusions only until family speaks with hospice.
Nano asked that I alert patient's oncologist, Dr. King at [facility], of his admission and updates. I attempted to call at . I was unable to get through to any provider or messaging system.
I updated Dr. Avelar who will consult hospice.
--- NOTE | 2023-07-23 14:32 | CM ---
Order received for hospice care. Call placed to Smooth's ex- to discuss options. She was aware of plan for hospice, as she had spoken with MD prior to my call. She and her daughter will come to when they are able to; daughter is on her way
home at this time.
Plan: GIP hospice with Hospice
--- NOTE | 2023-07-23 14:44 | EDRN ---
the pt is sleeping in the stretcher in the lowest position, side rails up x2, call tovar within reach, HOB elevated, the pt does awaken to voice however the pt is lethargic, this RN noticed that oral contrast was ordered for a CT scan for the pt,
this RN spoke with Dr. Armas and Myesha Mckeon PATIENT REGISTRAR and notified them that the pt is too lethargic to drink currently, the pt stated to this RN that he doesn't feel he can drink anything right now and just wants to rest, VS WNL, NSR in the 60's, last
BP 102/60 (74), RA Sp02 96%, Octreotide gtt, Pantoprazole gtt, IVF, and Albumin all currently running, once Albumin is complete, this RN will hang the second unit of blood products for the pt, this RN notified the provider, will continue to monitor
the pt closely
--- NOTE | 2023-07-23 15:28 | EDRN ---
urinalysis obtained and sent
[2023-07-23 15:38] LABS: Osmolality Urine 646 mOsm/kg (300-900)
--- NOTE | 2023-07-23 15:42 | EDRN ---
verbal report called to the receiving unit nurse Sonia LACEY
[2023-07-23 15:47] LABS: Urine Sodium < 5 mmol/L (30-90)
--- NOTE | 2023-07-23 17:02 | PTCARENOTE ---
Received patient via stretcher from ER. Patient is awake, alert and oriented x3 upon arrival, only complaining of pain when he moves. Patient receiving IV Albumin and is due for a second unit of blood. Vital signs 105/63, normal sinus @ 62. Family
at bedside. Patient and family oriented to room and unit policies.
--- NOTE | 2023-07-23 19:05 | HOSPNOTE ---
Called the patients ex and left a message with call back numbers for hospice.
[2023-07-23] MEDS: COMPAZINE 5 MG IV (21:14)
--- NOTE | 2023-07-23 23:30 | PTCARENOTE ---
Pt received from previous shift in bed. Albumin completed upon walking rounds. AAOx3, forgetful, soft speech. Telemetry = SR. Full physical assessment documented (refer to worklist). Abdomen large, firm, distended, round, with protuberant
hernias present. Pt with c/o nausea, DEPARTMENT HELPER covering house contacted, electronic orders received for IV zofran (refer to MAR). NSS and Octreotide infusing via L midline without complication. Protonix gtt infusing via #22 RW (positional). VAT RN
contacted for additional PIV as pt is ordered PRBCs (RAC painful to flush). Pt continued w/nausea despite zofran, vomited small amount of dark bilious emesis. DEPARTMENT HELPER covering house contacted, orders changed to IV compazine (refer to MAR). Pt
verbalizes relief of N/V after compazine. PRBCs transfused without any sign/symptoms of reaction. Protective foams placed to thoracic spine. Sacral foam in place. Pt voided via urinal, orange/tea colored. Call tovar within reach. Plan of care
ongoing.
[2023-07-24] VITALS (9 sets, daily range): BP systolic 104–121; BP diastolic 64–79
[2023-07-24] MEDS: MELATONIN 5 MG PO (01:44)
--- NOTE | 2023-07-24 02:06 | PTCARENOTE ---
Pt requesting something to sleep, appears restless, removes BP cuff, pulse ox, tele leads. Pain assessed, pt states 'I just want to be able to sleep' TALEND DEVELOPER covering house contacted, electronic orders received for melatonin (refer to MAR). Will
monitor effectiveness.
--- NOTE | 2023-07-24 02:24 | PTCARENOTE ---
Pt with increasing restlessness, keeps ringing call tovar stating 'I can't sleep, this melatonin isn't working'. Up and down in bed. MARKETING FINANCIAL ANALYST covering house contacted, electronic order received for IV ativan, awaiting pharmacy verification.
[2023-07-24] MEDS: ATIVAN 0.5 MG IV ×2 (02:31→21:28)
[2023-07-24] MEDS: NSS (PRESERVATIVE FREE) 0.25 ML IV ×2 (02:31→21:28)
[2023-07-24] MEDS: PROTONIX 100 IV (05:19)
[2023-07-24 05:36] LABS: % Basophils 0.2 % (0-2); % Eosinophils 0.7 % (0-6); % Immature Granulocytes 0.7 % (0-0.5); % Lymphocytes 3.5 % (20.5-51.1); % Monocytes 6.5 % (1.7-9.3); % Neutrophils 88.4 % (42.2-75.2); Absolute Eosinophils 0.1 10^3/uL (0-0.7); Absolute Immature Granulocytes 0.1 10^3/uL (0-0.05); Absolute Lymphocytes 0.4 10^3/uL (1.2-3.4); Absolute Monocytes 0.7 10^3/uL (0.1-0.6); Absolute Neutrophils 9.1 10^3/uL (1.4-6.5); Mean Corp Hgb Conc. 32.5 g/dL (33.0-37.0); Mean Corpuscular Hgb 24.1 pg (27.0-31.0); Mean Corpuscular Volume 74.3 fL (80.0-94.0); Mean Platelet Volume 9.1 fL (7.4-10.4); Nucleated Red Blood Cells % 0.2 % (-); Platelet Count 317 10^3/uL (130-400); Red Blood Cell Count 3.23 10^6/uL (4.70-6.10); Red Cell Dist. Width 21.6 % (11.5-14.5); White Blood Cell Count 10.2 10^3/uL (4.8-10.8)
[2023-07-24 05:40] LABS: Hemoglobin 7.8 g/dL (13.0-18.0)
[2023-07-24 06:30] LABS: ALT (SGPT) < 10 U/L (0-50); AST (SGOT) 23 U/L (17-59); Albumin 3.2 g/dl (3.5-5.0); Alkaline Phosphatase 68 U/L (38-126); Blood Urea Nitrogen 30 mg/dl (9-20); Calcium 8.5 mg/dl (8.4-10.2); Carbon Dioxide 21 mmol/L (22-30); Chloride 100 mmol/L (98-107); Estimated Creatinine Clearance 77 ml/min; Glucose 140 mg/dl (70-99); Potassium 3.9 mmol/L (3.5-5.1); Sodium 134 mmol/L (135-145); Total Bilirubin 2.1 mg/dl (0.2-1.3); Total Protein 6.3 g/dl (6.3-8.2); eGFR > 60.00
--- NOTE | 2023-07-24 08:17 | W.PN.GI.CBS2 ---
Today's Communication / Plan
-
-- ascites studies to be completed - micro and lab studies and follow culture
-- hospice conversation
Assessment / Plan
-
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 Koby King, esophageal varices with
bleeding, gastric varices, hypertension, hypothyroidism, recurrent ascites undergoing paracentesis at least once monthly at [facility], history of rectal cancer, who presented to the emergency room with complaints of nausea, vomiting, and abdominal
distention. We are being asked to evaluate for concern for GI bleed and ascites. 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
currently at [facility] with Dr. King. He has had recurrent admissions here last year for GI bleeding secondary to bleeding esophageal and gastric varices status post banding. He had was sent to [facility] for TIPS evaluation but is unclear as to
the results of this evaluation. He presents again today with nausea, vomiting, and abdominal distention found to have a hemoglobin of 6.0. He was placed on octreotide and PPI drip given his history of bleeding varices. Currently he is
hemodynamically stable pending blood transfusion. He underwent paracentesis for 2250 mL of clear ascitic fluid removed which is concerning for SBP given the significantly elevated WBC counts. He is lethargic but arousable and oriented. He denies
alcohol use
Problem list:
-Nausea, vomiting
-Abdominal distention, secondary to ascites with monthly paracentesis
-Severe microcytic anemia
-Leukocytosis
-History of bleeding esophageal and gastric varices
-History of pancreatic neuroendocrine tumor following with [facility] onc[facility] Dr. King
-Hyponatremia
-Severe iron deficiency
-Elevated BUN
-History of gastric ulcer
-History of portal and splenic vein thrombosis
Other pertinent medical history:
-Hypothyroidism
-Hypertension
-History of rectal cancer status post resection
-Portal hypertension
Recommendations:
-Etiology of anemia concerning for upper GI bleed given history of gastric and esophageal varices with dark brown heme positive stool. There is likely an chronic component to his anemia given his chronic medical problems. Reassuringly there is no
evidence of grossly active bleeding at this time, although given his drop of hemoglobin although we cannot rule out a slow bleed. He is overall hemodynamically stable.
07/24/23:
#+SBP - received albumin yesterday 1.5g/kg and should get 1g/kg tomorrow (day #3)
-- he's on 2g of ceftriaxone - unfortunately the ordered micro and fluid studies weren't completed - cell count was done and significant
-- i spoke to micro and they can't see the orders since they weren't completed - will discuss with nurse and re-order if needed
--- patient without abdominal pain
-- holding bblocker
#anemia - no overt bleeding except his nose at this point; hemodynamically stable
-- may very well have slow oozing from portal hypertensive gastropathy
-- check indirect bili
-- responded to 2 u of blood
-- ok for BID ppi, continue octreotide for now
#poor prognosis
-- hospice appropriately consulted for inoperable pancreatic neuroendocrine tumor with multiple complications and GIB due to the portal hypertension caused by the surrounding venous clots
-- his ex- Halley whom he designates as his chip person.
Total Time Spent with Patient (in minutes): 20
Subjective
Subjective
Date of Service: July 24, 2023
patient sleepy and received ativan last night for sleep
Denies any bleeding or abdominal pain. Denies n/v
Objective
Data Reviewed
Laboratory Data:
Laboratory Results
07/24/23 05:19
07/24/23 05:19
Laboratory Results
PT 16.0 Sec (11.4-14.6) H 07/23/23 11:36
INR 1.29 07/23/23 11:36
Total Bilirubin 2.1 mg/dl (0.2-1.3) H D 07/24/23 05:19
AST 23 U/L (17-59) 07/24/23 05:19
ALT < 10 U/L (0-50) 07/24/23 05:19
Alkaline Phosphatase 68 U/L (38-126) 07/24/23 05:19
Lipase 112 U/L (23-300) 07/23/23 06:08
Vital Signs and I&O:
Vital Signs
Temp Pulse Resp BP Pulse Ox
97.6 F 68 16 107/79 100
07/24/23 03:20 07/24/23 08:00 07/24/23 08:00 07/24/23 06:00 07/24/23 08:00
I&O
07/23/23 07/24/23 07/25/23
06:59 06:59 06:59
Intake Total 2079 / 2079
Output Total 250 / 250
Balance 183 / 183
Physical Exam
Physical Exam
HEENT: Other (has dried blood in his nares)
GI: Soft, Distended, Non Tender and Fluid Wave
[2023-07-24 08:43] LABS: Direct Bilirubin 0.7 mg/dl (0.0-0.4)
[2023-07-24] MEDS: SANDOSTATIN 500.600000000000023 MCG IV ×2 (08:45→21:26)
--- NOTE | 2023-07-24 08:49 | HOSPNOTE ---
Addendum entered by Gardenia Kirkland RN 07/24/23 14:28:
In person introduction completed. Family was able to speak to patient and patient is agreeable to hospice. I spoke to Nano and Kayli and explained the different hospice options again. Attending does not believe patient will pass within the next week
and does not feel he is inpatient appropriate. Attending declined making patient comfort care and monitoring for the next 24 hours to see if patient became inpatient appropriate. At this time, attending is recommending SNF placement. CM updated and
will be in contact with family to discuss referrals ect. I left a voicemail for family to update based on conversation with attending. Primary nurse also updated.
Addendum entered by Gardenia Kirkland RN 07/24/23 09:33:
Update- Spoke to ex Nano. She and their daughter are coming to see patient today. She also spoke to attending and attending is not certain if patient would be agreeable to hospice. In person introduction arranged for today at 1130 am with
hospice. CM and Attending updated. Will provide updated after introduction is completed.
Original Note:
Referral received. I placed a call this morning to patients ex Nano. I left a voicemail with my phone number asking her to return my call to discuss hospice. Attending updated. Will update if a return phone call is received.
[2023-07-24 09:13] LABS: Body Fluid Albumin < 1.0 g/dl; Body Fluid LDH 277 U/L; Body Fluid Protein < 2.0 g/dl
--- NOTE | 2023-07-24 09:20 | W.PN.HOSP.TC ---
Today's Communication/Plan
-
Await hospice meeting
Assessment / Plan
Assessment / Plan
Gen-awake, NAD, cachectic
HEENT-NC, AT, anicteric, clear oral mm
Neck-supple
CV-reg, no M, +S1/S2
Lungs-clear B/L
Abd-soft, NT, ND
Ext-no edema
Musculoskeletal-no cyanosis, clubbing
Skin-warm and dry
Neuro-grossly non-focal
Psych-calm, cooperative
SBP -continue IV Rocephin. IV albumin.
Acute GI bleed -heme positive stool noted in the emergency room. Relatively hemodynamically stable. Last BM was recorded as brown stool. Not actively bleeding.
Acute blood loss anemia, acute on chronic anemia -due to acute GI bleed. Hemoglobin 6.0. 2 units of blood for transfusion ordered by the emergency room, hemoglobin 7.8 today. Baseline hemoglobin unknown but was 7.1 in September of last year. Iron
deficiency anemia noted on labs explaining chronic anemia.
Hyponatremia -sodium improved to 134. Etiology unclear but could be related to ascites, diuretic therapy, hypovolemia, etc. urine osmolality 646, urine sodium less than 5.
Resume diet today with fluid restriction.
Pancreatic neuroendocrine tumor -treated at [facility] in [place].
Gastroesophageal varices
History of gastric ulcer
History of rectal cancer
Essential hypertension -relative hypotension, blood pressure 105/65. Hold antihypertensives for now.
Hypothyroidism -awaiting update of home medication list. Check TSH.
DNR -confirmed with patient.
Goals of care discussed with patient and subsequently I spoke with ex- and daughter on the phone this morning.
Chandler tells me that he is not ready for hospice. He continues to want to treat his conditions and 'to get better'.
I spoke with ex- and daughter on the phone but they informed me that in the past Chandler has mentioned to them that he does want hospice. However he also mentions to family that he wants to continue paracentesis whenever needed. Therefore, I do
not think he is mentally ready for hospice, but will defer further hospice discussions to wood type cutter and patient and family.
Anticipated Discharge: 24 - 48 hours
Subjective/Interval History
-
Date of Service: July 24, 2023
Patient seen and examined. Had some nausea overnight. Currently feels better. No complaints.
Objective Data
-
Labs:
Laboratory Results
07/24/23
05:19
WBC 10.2
Hgb 7.8 L D
Hct 24.0 L
Plt Count 317 D
Sodium 134 L
Potassium 3.9
Chloride 100
Carbon Dioxide 21 L
BUN 30 H
Creatinine 0.7
Glucose 140 H
Calcium 8.5
Total Bilirubin 2.1 H D
AST 23
ALT < 10
Alkaline Phosphatase 68
Vital Signs:
Vital Signs
Temp Pulse Resp BP Pulse Ox
97.4 F 68 16 107/79 100
07/24/23 07:40 07/24/23 08:00 07/24/23 08:00 07/24/23 06:00 07/24/23 08:00
I&O
07/23/23 07/24/23 07/25/23
06:59 06:59 06:59
Intake Total 2079
Output Total 250 / 250
Balance 183 / 183
Review of Systems
-
History Source: Patient
All other systems: Reviewed and negative
--- NOTE | 2023-07-24 11:24 | PTCARENOTE ---
Pt unable to eat breakfast, states he has no appetite and can't keep anything down. Remains seated out in chair, slightly restless and vaguely uncomfortable saying he feels 'full' (not grasping severity of illness) states he 'might need another
thoracentisis.' VSS. Warm blankets provided, emotional support offered. Pt's ex will be in for meeting with hospice liaison at 11:30.
--- NOTE | 2023-07-24 12:18 | HOSPNOTE ---
This SN met with patient's ex Nano and daughter Kayli for a hospice intro. Discussed patient's current condition. Introduced to hospice and all questions were answered. Discussed qualifications of [facility], going to a shelter vs going home.
Stressed that should patient return home, he would need 24 hour care. Nano aware that private caregivers and shelter are self pay. They acknowledge that patient is difficult to deal with and they are not certain whether he is ready for hospice
yet. They are also wondering if patient is competent to make decisions for himself. Nano given all contact information for hospice. Emotional support was provided. Total time with them was 45 minutes.
Informal conference with nurse Khoury. Aware that patient had a recent episode of coffee ground emesis and increase agitation requiring ativan.
[2023-07-24] MEDS: STERILE WATER FOR INJECTION 20 ML IV (13:35)
[2023-07-24] MEDS: ROCEPHIN 2000 MG IV (13:37)
--- NOTE | 2023-07-24 14:10 | PTCARENOTE ---
Addendum entered by Peng Torrez RN 07/24/23 14:17:
This RN called Nano, she will go to his house and obtain current meds and provide updated med list to us.
Original Note:
Family in room with patient, have discussed together and agreed to hospice. Pt in agreement, nodded head 'yes' when asked if he wants to be made comfortable. Dr. Avelar notified, med surg orders rec'd. TT sent to hospice care transitions coordinator staff occupational therapist, will notify CM.
Pt will have to go to SNF according to attending as he is not actively dying at this time. Per attending,med list needs to be reconciled, will reach out to family.
--- NOTE | 2023-07-24 14:48 | PTCARENOTE ---
clean room [id number] assigned, will call report.
--- NOTE | 2023-07-24 14:57 | CM ---
CM reviewed pt with [facility]/ Hospice
Pt, ex-spouse and dtr in agreement with hospice
Pt not able to return home with hospice due to lack of care in home
Pt will require SNF
Conference call with ex-spouse and dtr to review
They will look into patient's finances to see what financial resources he has intact
They would like SNFs in [facility]
SNF list left bedside and also referred to Medicare.gov
Plan to follow up tomorrow on SNF choices and what options are financially appropriate
Hospice will continue to follow
CM consult for advanced directives- not provided as hospice has been elected
Discharge Disposition- SNF with hospice
--- NOTE | 2023-07-24 15:24 | PTCARENOTE ---
Report given to Berta Montano RN, pt updated and in agreement with transfer, stood and pivoted to stretcher, gait slow and steady but weak. Pt verbalized appreciation for care.
--- NOTE | 2023-07-24 15:45 | PTCARENOTE ---
Rec'd pt from IMU. Pt drowsy but arousable. No further updated noted with pt's assessment. Will cont to monitor.
[2023-07-24 15:51] LABS: Free T4 0.49 ng/dl (0.78-2.19)
[2023-07-24] MEDS: NSS (PRESERVATIVE FREE) 10 ML IV (19:56)
[2023-07-24] MEDS: PROTONIX IV 40 MG IV (20:05)
--- NOTE | 2023-07-24 21:38 | PTCARENOTE ---
Patient was agitated and restless, pulling gown off. Advised WOOD Kent. Orders received.
--- NOTE | 2023-07-24 22:10 | PTCARENOTE ---
Patient is refusing Telemetry. He is on [place] Advised WOOD Kent. Will place later if he changes his mind.
[2023-07-25 03:01] VITALS: BP 102/68
[2023-07-25 07:25] VITALS: BP 100/53
[2023-07-25] MEDS: NSS (PRESERVATIVE FREE) 10 ML IV ×2 (08:27→20:39)
[2023-07-25] MEDS: PROTONIX IV 40 MG IV ×2 (08:27→20:39)
[2023-07-25] MEDS: FLUSH (NSS) 2 FLUSH IV ×3 (08:29→11:37)
[2023-07-25 08:54] VITALS: BMI 18.4
[2023-07-25] MEDS: MIRALAX 17 GRAMS PO (10:01)
[2023-07-25] MEDS: COLACE 100 MG PO (10:01)
--- NOTE | 2023-07-25 10:39 | W.PN.HOSP.TC ---
Addendum entered and electronically signed by Armin Avelar DO 07/25/23 11:32:
Updated daughter on the phone regarding plan of care. All questions answered.
I explained that [facility] is not imminent and he is certainly not comatose and therefore does not qualify for inpatient hospice or comfort measures.
Needs placement in a fdc for hospice services.
Original Note:
Today's Communication/Plan
-
Obstruction series
N.p.o.
IV fluids
Paracentesis
Assessment / Plan
Assessment / Plan
Gen-awake, NAD, cachectic
HEENT-NC, AT, anicteric, clear oral mm
Neck-supple
CV-reg, no M, +S1/S2
Lungs-clear B/L
Abd-soft, tender and diffusely distended
Ext-no edema
Musculoskeletal-no cyanosis, clubbing
Skin-warm and dry
Neuro-grossly non-focal
Psych-calm, cooperative
Severe vomiting -feculent material today. Increasing abdominal distention. Concerning for bowel obstruction. N.p.o., IV fluids. Check obstructive series.
SBP -continue IV Rocephin. IV albumin. Paracentesis done on July 22, 2.2 L of clear yellow ascitic fluid evacuated. Gastroenterology has contacted IR and plan for repeat paracentesis today.
Acute GI bleed -heme positive stool noted in the emergency room. Relatively hemodynamically stable. Last BM was recorded as brown stool. Not actively bleeding.
Acute blood loss anemia, acute on chronic anemia -due to acute GI bleed. Hemoglobin 6.0. 2 units of blood for transfusion ordered by the emergency room, hemoglobin 7.8 yesterday. Baseline hemoglobin unknown but was 7.1 in September of last year. Iron
deficiency anemia noted on labs explaining chronic anemia.
Hyponatremia -sodium improved to 134. Etiology unclear but could be related to ascites, diuretic therapy, hypovolemia, etc. urine osmolality 646, urine sodium less than 5.
Resume diet today with fluid restriction.
Pancreatic neuroendocrine tumor -treated at [facility] in [place].
Recurrent ascites -I spoke with gastroenterology. Interventional radiology is willing to place a Pleurx catheter on discharge given that he will be going onto hospice. Will need daily drainage.
Gastroesophageal varices
History of gastric ulcer
History of rectal cancer
Essential hypertension -relative hypotension, blood pressure 105/65. Hold antihypertensives for now.
Hypothyroidism -awaiting update of home medication list. TSH 18, free T4 0.49.
DNR -confirmed with patient.
Dispo -he remains appropriate for hospice but he also lacks insight and cannot make decisions on his own. His POA is his his ex-. He also has a daughter. Family has decided on pursuing hospice.
Anticipated Discharge: 24 - 48 hours
Subjective/Interval History
-
Date of Service: July 25, 2023
Patient seen and examined. Complaining of abdominal pain today.
Objective Data
-
Vital Signs:
Vital Signs
Temp Pulse Resp BP Pulse Ox
97.9 F 69 17 100/53 98
07/25/23 07:25 07/25/23 07:25 07/25/23 07:25 07/25/23 07:25 07/25/23 07:25
I&O
07/24/23 07/25/23 07/26/23
06:59 06:59 06:59
Intake Total 0 / 2080 1260 / 1260
Output Total 250 / 250 250 / 250
Balance 1830 / 1830 1010 / 1010
Review of Systems
-
History Source: Patient
All other systems: Reviewed and negative
[2023-07-25] MEDS: MORPHINE SULFATE 2 MG IV (11:11)
[2023-07-25] MEDS: NSS 1000 IV (11:35)
[2023-07-25] MEDS: ROCEPHIN 2000 MG IV (11:36)
[2023-07-25] MEDS: STERILE WATER FOR INJECTION 20 ML IV (11:36)
[2023-07-25 12:44] VITALS: BP 118/71; BP_SYST 66
[2023-07-25 13:16] VITALS: BP 110/69; BP_SYST 68
[2023-07-25] MEDS: FLEXBUMIN 200 IV (13:45)
--- NOTE | 2023-07-25 14:08 | HOSPNOTE ---
Hospice will continue to follow this patient for home/snf hospice of [facility] if his condition worsens.
[2023-07-25 15:53] VITALS: BP 116/61
--- NOTE | 2023-07-25 16:07 | W.PN.UPDATE ---
Update Note
Progress Note Update
Patient seen and examined after obstruction series completed.
Significant gaseous distention of the stomach and air-fluid level noted, suggesting gastric outlet obstruction.
Discussed with nurse, place NG tube. Patient agreeable.
Keep NPO.
Suspect malignancy induced obstructive process.
Updated daughter on the phone with findings.
--- NOTE | 2023-07-25 16:37 | PTCARENOTE ---
Just received a call from AIME Mcgill, pt's x , who has been in discussion with patients wishes. She is not happy that she was not called today about his care plan. This RN did return her call by leaving a message. Pts daughter was in earlier
today and spoke to MD about pt's care and plan. Please place all calls to pt's x- with the further process.
[2023-07-25 17:56] LABS: Body Fluid Mononuclear 24.8 %; Body Fluid Polymorphonuclear 75.2 %; Body Fluid WBC 3060 /CUMM
[2023-07-25 18:03] LABS: Body Fluid Second Tech CF
[2023-07-25] MEDS: COLACE PO (20:37)
[2023-07-25 23:04] VITALS: BP 111/62
[2023-07-26] MEDS: NSS 1000 IV (05:13)
[2023-07-26 07:35] VITALS: BP 113/62
[2023-07-26] MEDS: PROTONIX IV 40 MG IV ×2 (09:21→20:18)
[2023-07-26] MEDS: NSS (PRESERVATIVE FREE) 10 ML IV ×2 (09:21→20:18)
[2023-07-26] MEDS: MIRALAX PO (09:22)
[2023-07-26] MEDS: COLACE PO ×2 (09:22→20:18)
--- NOTE | 2023-07-26 11:00 | PTCARENOTE ---
Pt agitated this morning, requesting oral intake. Pt provided with ice chips as ordered in NPO diet order. Pt grabbing at NG tube & removed stabilizing tape and pulled tube out of nose stating 'I am going home'. GI notified.
--- NOTE | 2023-07-26 11:08 | WOUNDNOTE ---
R BUTTOCK AND SACRUM
--- NOTE | 2023-07-26 11:09 | WOUNDNOTE ---
WON RN NOTE: Asked to see patient this morning regarding coccyx wounds on admission. Patient able to turn self in bed but very weak and unable to tolerate being on side for long. Has a S1 PI on R buttock,foam applied. Coccyx blanchable red, on a
[facility] care air bed. Patient and family has decided on hospice care, will sign off.
--- NOTE | 2023-07-26 11:19 | W.PN.GI.CBS2 ---
Today's Communication / Plan
-
-- IR for placement of Pleurx catheter
-- Hospice arrangements
-- GI will sign off. Please call with any questions or if we can be of any assistance
Assessment / Plan
-
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 oKby King, esophageal varices with
bleeding, gastric varices, hypertension, hypothyroidism, recurrent ascites undergoing paracentesis at least once monthly at [facility], history of rectal cancer, who presented to the emergency room with complaints of nausea, vomiting, and abdominal
distention. We are being asked to evaluate for concern for GI bleed and ascites. 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
currently at [facility] with Dr. King. He has had recurrent admissions here last year for GI bleeding secondary to bleeding esophageal and gastric varices status post banding. He had was sent to [place] for TIPS evaluation but is unclear as to
the results of this evaluation. He presents again today with nausea, vomiting, and abdominal distention found to have a hemoglobin of 6.0. He was placed on octreotide and PPI drip given his history of bleeding varices. Currently he is
hemodynamically stable pending blood transfusion. He underwent paracentesis for 2250 mL of clear ascitic fluid removed which is concerning for SBP given the significantly elevated WBC counts. He is lethargic but arousable and oriented. He denies
alcohol use
Problem list:
-Nausea, vomiting
-Abdominal distention, secondary to ascites with monthly paracentesis
-Severe microcytic anemia
-Leukocytosis
-History of bleeding esophageal and gastric varices
-History of pancreatic neuroendocrine tumor following with [facility] oncology Dr. King
-Hyponatremia
-Severe iron deficiency
-Elevated BUN
-History of gastric ulcer
-History of portal and splenic vein thrombosis
Other pertinent medical history:
-Hypothyroidism
-Hypertension
-History of rectal cancer status post resection
-Portal hypertension
Recommendations:
-Etiology of anemia concerning for upper GI bleed given history of gastric and esophageal varices with dark brown heme positive stool. There is likely an chronic component to his anemia given his chronic medical problems. Reassuringly there is no
evidence of grossly active bleeding at this time, although given his drop of hemoglobin although we cannot rule out a slow bleed. He is overall hemodynamically stable.
07/24/23:
#+SBP - received albumin yesterday 1.5g/kg and should get 1g/kg tomorrow (day #3)
-- he's on 2g of ceftriaxone - unfortunately the ordered micro and fluid studies weren't completed - cell count was done and significant
-- i spoke to micro and they can't see the orders since they weren't completed - will discuss with nurse and re-order if needed
--- patient without abdominal pain
-- holding bblocker
#anemia - no overt bleeding except his nose at this point; hemodynamically stable
-- may very well have slow oozing from portal hypertensive gastropathy
-- check indirect bili
-- responded to 2 u of blood
-- ok for BID ppi, continue octreotide for now
#poor prognosis
-- hospice appropriately consulted for inoperable pancreatic neuroendocrine tumor with multiple complications and GIB due to the portal hypertension caused by the surrounding venous clots
-- his ex- Halley whom he designates as his veterans contact representative.
07/26/23: patient agrees to hospice and wants to eat/drink/get a pleurex cath for comfort care
--Spent over an hour coordinating care with the patient, hospice nurse and his ex- as well as coordinating with the hospitalist and interventional radiology today
--Patient pulled his NG tube out
--His preference of course is to go home on hospice, however his ex- states his house is not a feasible option due to many reasons
--After long discussion as long as the patient can get the Pleurx drainage catheter he is willing to go to a facility and hopes to eventually go home on hospice
--In terms of diet, would stick with more liquid based nutrition since solid foods will likely get vomited back up based on imaging it looks like he has a gastric outlet obstruction from his inoperable pancreatic neuroendocrine tumor
--- Agree with hospice care
--Please call us back if we can be of any assistance
--Discussed with IR for placement of Pleurx catheter
Total Time Spent with Patient (in minutes): 76
Subjective
Subjective
Date of Service: July 26, 2023
patient wants to drink and take the NGT out. also, is ok with hospice and placement of a Plurex catheter to drain the ascites regularly to keep him comfortable
Objective
Data Reviewed
Laboratory Data:
Laboratory Results
07/24/23 05:19
07/24/23 05:19
Laboratory Results
PT 16.0 Sec (11.4-14.6) H 07/23/23 11:36
INR 1.29 07/23/23 11:36
Total Bilirubin 2.1 mg/dl (0.2-1.3) H D 07/24/23 05:19
AST 23 U/L (17-59) 07/24/23 05:19
ALT < 10 U/L (0-50) 07/24/23 05:19
Alkaline Phosphatase 68 U/L (38-126) 07/24/23 05:19
Lipase 112 U/L (23-300) 07/23/23 06:08
Vital Signs and I&O:
Vital Signs
Temp Pulse Resp BP Pulse Ox
97.9 F 74 16 113/62 96
07/26/23 07:35 07/26/23 07:35 07/26/23 07:35 07/26/23 07:35 07/26/23 07:35
I&O
07/25/23 07/26/23 07/27/23
06:59 06:59 06:59
Intake Total 1260 / 1260 1720 / 1720
Output Total 250 / 250 2099 / 2099
Balance 1010 / 1010 -380 / -380
Physical Exam
Physical Exam
HEENT: Anicteric and Other (NGT in place)
GI: Soft and Distended (less distended than yesterday. )
Extremities: No Edema
Neuro: Non Focal and Other (awake, alert and oriented)
[2023-07-26] MEDS: ROCEPHIN 2000 MG IV (11:36)
[2023-07-26] MEDS: STERILE WATER FOR INJECTION 20 ML IV (11:36)
--- NOTE | 2023-07-26 11:41 | W.PN.HOSP.TC ---
Today's Communication/Plan
-
monitor vitals
see plan
does not meet inpatient criteria for hospice
clears
does not want NGT
plan for hospice; dispo pending. CM aware
Discussed with patient and POA
Assessment / Plan
Assessment / Plan
Gen-awake, NAD, cachectic
HEENT-NC, AT, anicteric, clear oral mm
Neck-supple
CV-reg, no M, +S1/S2
Lungs-clear B/L
Abd-soft, tender and diffusely distended
Ext-no edema
Musculoskeletal-no cyanosis
Skin-warm and dry
Neuro-grossly non-focal
Psych-calm, cooperative
Severe vomiting -now intermittent; Abdomen xray with gastric outlet obstruction. cw antiemetics. NGT was placed 07/24, patient removed it morning 07/25 and does not want it. Patient and family interested in hospice. started clears for comfort.
SBP -continue IV Rocephin. IV albumin. Paracentesis done on July 22, 2.2 L of clear yellow ascitic fluid evacuated. repeat para 07/24 noted. Gastroenterology following. Plan for pleuryx in abdomen for ascites drainage as patient and family opted
for hospice
Acute GI bleed -heme positive stool noted in the emergency room. Relatively hemodynamically stable. Last BM was recorded as brown stool. Not actively bleeding.
Acute blood loss anemia, acute on chronic anemia -due to acute GI bleed. Hemoglobin 6.0. 2 units of blood for transfusion ordered by the emergency room, then hemoglobin 7.8. Baseline hemoglobin unknown but was 7.1 in September of last year. Iron
deficiency anemia noted on labs explaining chronic anemia.
Hyponatremia - Etiology unclear but could be related to ascites, diuretic therapy, hypovolemia, etc. urine osmolality 646, urine sodium less than 5.
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
Recurrent ascites -I spoke with gastroenterology. Interventional radiology is willing to place a Pleurx catheter on discharge given that he will be going onto hospice. Will need daily drainage.
Gastroesophageal varices
History of gastric ulcer
History of rectal cancer
Essential hypertension -relative hypotension, blood pressure 105/65. Hold antihypertensives for now.
Hypothyroidism -awaiting update of home medication list. TSH 18, free T4 0.49.
DNR -confirmed with patient.
Dispo -he remains appropriate for hospice but he also lacks insight and cannot make decisions on his own. His POA is his his ex-. He also has a daughter. Family has decided on pursuing hospice. CM aware of placement
Anticipated Discharge: Within 24 hours
Subjective/Interval History
-
Date of Service: July 26, 2023
denies pain
Objective Data
-
Vital Signs:
Vital Signs
Temp Pulse Resp BP Pulse Ox
97.9 F 74 16 113/62 96
07/26/23 07:35 07/26/23 07:35 07/26/23 07:35 07/26/23 07:35 07/26/23 07:35
I&O
07/25/23 07/26/23 07/27/23
06:59 06:59 06:59
Intake Total 1260 / 1260 1720 / 1720
Output Total 250 / 250 2100 / 2100
Balance 1010 / 1010 -380 / -380
--- NOTE | 2023-07-26 12:08 | HOSPNOTE ---
Spoke with ex POA and patient. Patient is interested in hospice care. Will need to place in a SNF facility as patient is not able to take care of himself and home is unsuited for caregivers or patient to live. Ex Nano is aware she will
need to step in a POA and assist with placement as patient is unwilling to accept he can not return home.
Dr. Armas will contact interventional radiology for port placement prior to hospice signing on and placement in a SNF will need to be addressed. He will then go to SNF on hospice.
--- NOTE | 2023-07-26 12:41 | HOSPNOTE ---
Hospice correction patient will have a drain placed in interventional radiology not a port as previously documented in error.
[2023-07-26] MEDS: MORPHINE SULFATE 2 MG IV ×2 (13:45→20:18)
--- NOTE | 2023-07-26 13:57 | HOSPNOTE ---
Ex Nano and AIME will proceed with trying to find a facility that will accept an aspect drain. Patient drained for 2200 cc on 07/22 and 4500cc on 07/24. Patient discontinued his own NG tube today. Hospice will need to evaluate if patient
declines and qualified for GIP level of care in the next few days as he currently does not meet criteria. Morphine IV x 1 in last 24 hours. No nausea or vomiting at this time.
--- NOTE | 2023-07-26 14:01 | W.PN.UPDATE ---
Update Note
Progress Note Update
And [facility] to get jail to accept him with the Pleurx drain first. For now we will hold off on the drain until there are clear plans.
I discussed this with IR. They said to call them back when they are ready for the drainage tube
per IR - 'Just a few things needed before we proceed. We would need to know who is going to manage it once he is discharged. That person needs to determine frequency of drainage/week. We also need to get social work on board to arrange VNA if going
home or if going to a facility we need to make sure they will accept him with catheter (surprisingly not all do). We would also need to know if the family wants to be educated on how drain as well.'
[2023-07-26 15:35] VITALS: BP 102/53
[2023-07-26] MEDS: MORPHINE SULFATE IV (17:55)
[2023-07-26] MEDS: COMPAZINE IV (17:55)
[2023-07-26] MEDS: COMPAZINE 5 MG IV (20:26)
[2023-07-26 23:37] VITALS: BP 114/65
[2023-07-27] MEDS: MORPHINE SULFATE 2 MG IV ×2 (04:29→21:07)
[2023-07-27 07:40] VITALS: BP 118/66
--- NOTE | 2023-07-27 08:31 | CM ---
Reviewed chart notes and spoke with the patients ex-spouse at the bedside yesterday. Referrals for SNF have been made, awaiting responses. Will need to be private pay. Asept Cath will be a barrier, not all facilities are able to manage. Hospice
is following. CM continues to be available to patient/family and is monitoring medical plan for needs at discharge.
Plan: Discharge plans will depend on the patient's progress.
[2023-07-27] MEDS: PROTONIX IV 40 MG IV ×2 (08:48→20:59)
[2023-07-27] MEDS: NSS (PRESERVATIVE FREE) 10 ML IV ×2 (08:48→20:59)
[2023-07-27] MEDS: MIRALAX 17 GRAMS PO (08:48)
[2023-07-27] MEDS: COLACE 100 MG PO ×2 (08:48→20:58)
[2023-07-27] MEDS: COMPAZINE 5 MG IV ×3 (09:01→21:41)
--- NOTE | 2023-07-27 11:52 | W.PN.HOSP.TC ---
Today's Communication/Plan
-
monitor vitals
see plan
add scopolamine patch
comfort measures pending hospice placement
pain control
antiemetics
updated ex over the phone
Assessment / Plan
Assessment / Plan
Gen-awake, NAD, cachectic
HEENT-NC, AT, anicteric, clear oral mm
Neck-supple
CV-reg, no M, +S1/S2
Lungs-clear B/L
Abd-soft, tender and diffusely distended
Ext-no edema
Musculoskeletal-no cyanosis
Skin-warm and dry
Neuro-grossly non-focal
Psych-calm, cooperative
Severe vomiting -now intermittent; Abdomen xray with gastric outlet obstruction. cw antiemetics. NGT was placed 07/24, patient removed it morning 07/25 and does not want it. Patient and family interested in hospice. started clears for comfort.
scopolamine patch, compazine
SBP -continue IV Rocephin. IV albumin. Paracentesis done on July 22, 2.2 L of clear yellow ascitic fluid evacuated. repeat para 07/24 noted. Gastroenterology following. Plan for pleuryx in abdomen for ascites drainage as patient and family opted
for hospice
Acute GI bleed -heme positive stool noted in the emergency room. Relatively hemodynamically stable. Last BM was recorded as brown stool. Not actively bleeding.
Acute blood loss anemia, acute on chronic anemia -due to acute GI bleed. Hemoglobin 6.0. 2 units of blood for transfusion ordered by the emergency room, then hemoglobin 7.8. Baseline hemoglobin unknown but was 7.1 in September of last year. Iron
deficiency anemia noted on labs explaining chronic anemia.
Hyponatremia - Etiology unclear but could be related to ascites, diuretic therapy, hypovolemia, etc. urine osmolality 646, urine sodium less than 5.
Pancreatic neuroendocrine tumor -treated at [facility] in [place].
Recurrent ascites -I spoke with gastroenterology. Interventional radiology is willing to place a Pleurx catheter on discharge given that he will be going onto hospice. Will need daily drainage for patient's comfort. likely placement when has NH to
go to on hospice.
Gastroesophageal varices
History of gastric ulcer
History of rectal cancer
Essential hypertension -relative hypotension, blood pressure 105/65. Hold antihypertensives for now.
Hypothyroidism -awaiting update of home medication list. TSH 18, free T4 0.49.
DNR -confirmed with patient.
Dispo -he remains appropriate for hospice but he also lacks insight and cannot make decisions on his own. His POA is his his ex-. He also has a daughter. Family has decided on pursuing hospice. CM aware of placement. patient does not meet
criteria for inpatient at this time. There was also a question if facilities can accept patient with Asept catheter; Asept catheter is for comfort and can be drained daily per patient's comfort.
Currently on comfort measures pending hospice placement
Anticipated Discharge: Within 24 hours
Subjective/Interval History
-
Date of Service: July 27, 2023
denies abdominal pain
Objective Data
-
Vital Signs:
Vital Signs
Temp Pulse Resp BP Pulse Ox
98.5 F 71 16 118/66 94
07/27/23 07:40 07/27/23 07:40 07/27/23 07:40 07/27/23 07:40 07/27/23 07:40
I&O
07/26/23 07/27/23 07/28/23
06:59 06:59 06:59
Intake Total 1720 / 1720 480 / 480
Output Total 2100 / 2100 100 / 100
Balance -380 / -380 380 / 380
--- NOTE | 2023-07-27 12:42 | PN.CDI ---
CDI
- -
CDI:
Physician Documentation Request
Admit Date: 07/23/23 07:59
Dear Doctor David,
Patient admitted with severe vomiting.
07/25 Nursing skin assessment by RON, 'Stage 1 middle coccyx pressure injury, POA .'
Physician documentation of the type and location of wounds is required for compliant documentation. Based on the above clinical findings and your assessment, please provide the following in your progress note:
Type (etiology) of ulcer/wound:
- Pressure (decubitus) ulcer
- Other
- Unable to determine
For a pressure ulcer, please also include the stage* of the ulcer:
- Stage 1 - Skin intact, non-blanchable redness
- Stage 2 - Partial thickness loss of dermis, includes intact or open blister
- Stage 3 - Full thickness tissue not including bone, tendon or muscle
- Stage 4 - Full thickness tissue loss, including exposed bone, tendon or muscle
- Unstageable - Full thickness loss in which the base of the ulcer is covered by slough (yellow, andrews, baeza, green or brown) and/or eschar (andrews, brown or black) in the wound bed.
- Unable to determine
Use of terms such as suspected, likely, concern for, or probable (associated with a specific diagnosis that is being evaluated, monitored, or treated as if it exists) are acceptable and can be coded in the inpatient setting, when documented at the
time of discharge.
Thank you,
Jada ANTON,RN,CCDS
CDI Specialist
Available via [employer] text
Please use your independent medical judgment in providing your response.
*Source: National Pressure Ulcer Advisory Panel (NPUAP)
[2023-07-27] MEDS: TRANSDERM-SCOP 1 PATCH TRANSDERM (12:43)
[2023-07-27] MEDS: ROCEPHIN 2000 MG IV (12:44)
[2023-07-27] MEDS: STERILE WATER FOR INJECTION 20 ML IV (12:44)
--- NOTE | 2023-07-27 13:01 | PN.CDI ---
CDI
- -
CDI:
Physician Documentation Request
Admit Date: 07/23/23 07:59
Dear Doctor David,
Patient admitted with severe vomiting.
07/24 Nutrition assessment, 'Pt meets criteria for severe protein calorie malnutrition of chronic illness with >20% wt loss x 1yr, prolonged poor intake prior to admit <75% for >1 mo, severe muscle loss (temporal, clavicle), severe subcutaneous fat
loss (orbital).'
Please provide in your note the diagnosis associated with the above findings and your assessment:
Severe protein calorie malnutrition
Other (please specify)
[place] Criteria ([facility] Hospitalist 2017)
2 or more criteria must be present for either
non severe or severe malnutrition
Note that the criteria differs related to the
presence of an acute or chronic illness
Chronic Illness
Energy Intake Non Severe: <75% for >1 month
Severe: <75% for >1 month
Weight Loss Non Severe: 5% over 1 month
7.5% over 3 months
10% over 6 months
20% over 1 year
Severe: >5% over 1 month
>7.5% over 3 months
>10% over 6 months
>20% over 1 year
Body Fat Non Severe: Mild Loss
Severe: Severe Loss
Muscle Mass Non Severe: Mild Loss
Severe: Severe Loss
Fluid Accumulation Non Severe: Mild Accumulation
Severe: Moderate to severe
accumulation
Reduced Transactional [employer] Strength Non Severe: N/A
Severe: Measurably reduced
Use of terms such as suspected, likely, concern for, or probable (associated with a specific diagnosis that is being evaluated, monitored, or treated as if it exists) are acceptable and can be coded in the inpatient setting, when documented at the
time of discharge.
Thank you,
Jada ANTON,RN,CCDS
CDI Specialist
Available via [employer] text
Please use your independent medical judgment in providing your response.
--- NOTE | 2023-07-27 15:35 | CM ---
Addendum entered by Rain Resendiz RN 07/27/23 16:35:
Oneil from [facility] ([phone]) spoke with CM. Oneil will reach out to the patient's ex-spouse regarding having a place for the patient. If accepted by all parties, plan for ASEPT cath placement will need to be addressed prior to discharge.
Oneil will be on site tomorrow for evaluation. Oneil has contact information.
Original Note:
Reviewed the chart notes and spoke with the ex-spouse at the bedside. Additional referral sent to [facility] hospice in [place]. FELIPE spoke with Mateo Cortes for possible placement as well. CM continues to be available to patient/family and is
monitoring medical plan for needs at discharge.
Plan: Discharge to facility once bed found.
[2023-07-27 15:50] VITALS: BP 110/62
[2023-07-27 23:16] VITALS: BP 112/63
[2023-07-28] VITALS (9 sets, daily range): BP systolic 62–4200; BP diastolic 57–80
[2023-07-28] MEDS: COMPAZINE 5 MG IV ×2 (03:25→22:27)
[2023-07-28] MEDS: PROTONIX IV 40 MG IV ×2 (08:54→19:42)
[2023-07-28] MEDS: MIRALAX 17 GRAMS PO (08:54)
[2023-07-28] MEDS: NSS (PRESERVATIVE FREE) 10 ML IV ×2 (08:54→19:42)
[2023-07-28] MEDS: COLACE 100 MG PO ×2 (08:54→19:41)
--- NOTE | 2023-07-28 09:38 | CM ---
Addendum entered by Rain Resendiz RN 07/28/23 16:12:
ASCEPT placed today. Patient to be discharged tomorrow to [facility]. Patient's ex-spouse and facility informed of plan.
Addendum entered by Rain Resendiz RN 07/28/23 09:58:
Patient to have ASEPT cath placement prior to discharge. [facility] is able to accommodate cath.
Original Note:
Reviewed the chart notes and spoke with the patient's ex-spouse via telephone. IMM reviewed. Oneil from [facility] was in to see patient and speak with the patient's ex-spouse Nano via telephone. All in agreement with transfer
to [facility] today. CM continues to be available to patient/family and is monitoring medical plan for needs at discharge.
Plan: Discharge to [facility] today.
Call report to:
Fax report to:
Medical necessity and transport forms on chart.
--- NOTE | 2023-07-28 12:04 | W.PN.HOSP.TC ---
Today's Communication/Plan
-
monitor vitals
see plan
IR consulted for Asept for comfort
can drain catheter daily or every other day for patient's comfort
pain control
antiemetics
hopeful dc later today on hospice
discussed with ex over the phone
Assessment / Plan
Assessment / Plan
Gen-awake, NAD, cachectic
HEENT-NC, AT, anicteric, clear oral mm
Neck-supple
CV-reg, no M, +S1/S2
Lungs-clear B/L
Abd-soft, tender and diffusely distended
Ext-no edema
Musculoskeletal-no cyanosis
Skin-warm and dry
Neuro-grossly non-focal
Psych-calm, cooperative
Severe vomiting -now intermittent; Abdomen xray with gastric outlet obstruction. cw antiemetics. NGT was placed 07/24, patient removed it morning 07/25 and does not want it. Patient and family interested in hospice. started clears for comfort.
scopolamine patch, compazine. can do zofran sublingual or suppositories outpatient per hospice.
SBP -continue IV Rocephin. IV albumin. Paracentesis done on July 22, 2.2 L of clear yellow ascitic fluid evacuated. repeat para 07/24 noted. Gastroenterology following. Plan for pleuryx in abdomen for ascites drainage as patient and family opted
for hospice
Acute GI bleed -heme positive stool noted in the emergency room. Relatively hemodynamically stable. Last BM was recorded as brown stool. Not actively bleeding.
Acute blood loss anemia, acute on chronic anemia -due to acute GI bleed. Hemoglobin 6.0. 2 units of blood for transfusion ordered by the emergency room, then hemoglobin 7.8. Baseline hemoglobin unknown but was 7.1 in September of last year. Iron
deficiency anemia noted on labs explaining chronic anemia.
Hyponatremia - Etiology unclear but could be related to ascites, diuretic therapy, hypovolemia, etc. urine osmolality 646, urine sodium less than 5.
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
Recurrent ascites -I spoke with gastroenterology. Interventional radiology is willing to place a Pleurx catheter on discharge given that he will be going onto hospice. Will need daily drainage for patient's comfort. likely placement when has NH to
go to on hospice.
Gastroesophageal varices
History of gastric ulcer
History of rectal cancer
Essential hypertension -relative hypotension, blood pressure 105/65. Hold antihypertensives for now.
Hypothyroidism -awaiting update of home medication list. TSH 18, free T4 0.49.
Severe protein calorie malnutrition
Stage 1 middle coccyx pressure injury, POA
DNR -confirmed with patient.
Dispo -he remains appropriate for hospice but he also lacks insight and cannot make decisions on his own. His POA is his his ex-. He also has a daughter. Family has decided on pursuing hospice. CM aware of placement. patient does not meet
criteria for inpatient at this time. There was also a question if facilities can accept patient with Asept catheter; Asept catheter is for comfort and can be drained daily per patient's comfort. receiving facility to change asept drainage orders per
his comfort.
Currently on comfort measures pending hospice placement
Anticipated Discharge: Today
Subjective/Interval History
-
Date of Service: July 28, 2023
denies pain
Objective Data
-
Vital Signs:
Vital Signs
Temp Pulse Resp BP Pulse Ox
97.8 F 60 20 107/60 98
07/28/23 07:45 07/28/23 07:45 07/28/23 07:45 07/28/23 07:45 07/28/23 12:02
I&O
07/27/23 07/28/23 07/29/23
06:59 06:59 06:59
Intake Total 480 / 480 960 / 960
Output Total 100 / 100 100 / 100
Balance 380 / 380 860 / 860
[2023-07-28] MEDS: STERILE WATER FOR INJECTION 20 ML IV (12:45)
[2023-07-28] MEDS: ROCEPHIN 2000 MG IV (12:45)
--- NOTE | 2023-07-28 15:58 | PTCARENOTE ---
ASEPT cath placement done this afternoon in IR. per report pt received prn zofran after having episode of n/v with ice chips. pt back in room, pt to go to facility tomorrow morning at 1030 via ambulance. pt continued on clear liquid diet. pt had
4200cc of fluid drained during procedure.
[2023-07-28] MEDS: MORPHINE SULFATE 2 MG IV (22:21)
[2023-07-29 07:35] VITALS: BP 118/67
[2023-07-29] MEDS: MIRALAX PO (08:11)
[2023-07-29] MEDS: COLACE PO (08:11)
[2023-07-29] MEDS: PROTONIX IV 40 MG IV (08:44)
[2023-07-29] MEDS: NSS (PRESERVATIVE FREE) 10 ML IV (08:44)
--- NOTE | 2023-07-29 08:54 | PTCARENOTE ---
[facility] called for report this AM. pt to at 1030 this AM via ambulance. pt is going to facility with [facility] where he will receive IV medications. pt is aaox3, putting out dark tea colored urine, and has his drain in place. starter kit i sat
bedside and will be sent with patient as well as his belongings. pt received IV protonix this AM and refused his colace and miralax.
--- NOTE | 2023-07-29 10:01 | W.PN.HOSP.TC ---
Today's Communication/Plan
-
monitor vitals
see plan
asept for comfort
plan for dc on hospice today
time of discharge 37 minutes
Assessment / Plan
Assessment / Plan
Gen-awake, NAD, cachectic
HEENT-NC, AT, anicteric, clear oral mm
Neck-supple
CV-reg, no M, +S1/S2
Lungs-clear B/L
Abd-soft, tender and diffusely distended
Ext-no edema
Musculoskeletal-no cyanosis
Skin-warm and dry
Neuro-grossly non-focal
Psych-calm, cooperative
Severe vomiting -now intermittent; Abdomen xray with gastric outlet obstruction. cw antiemetics. NGT was placed 07/24, patient removed it morning 07/25 and does not want it. Patient and family interested in hospice. started clears for comfort.
scopolamine patch, compazine. can do zofran sublingual or suppositories outpatient per hospice.
SBP -continue IV Rocephin. IV albumin. Paracentesis done on July 22, 2.2 L of clear yellow ascitic fluid evacuated. repeat para 07/24 noted. Gastroenterology following. Plan for pleuryx in abdomen for ascites drainage as patient and family opted
for hospice
Acute GI bleed -heme positive stool noted in the emergency room. Relatively hemodynamically stable. Last BM was recorded as brown stool. Not actively bleeding.
Acute blood loss anemia, acute on chronic anemia -due to acute GI bleed. Hemoglobin 6.0. 2 units of blood for transfusion ordered by the emergency room, then hemoglobin 7.8. Baseline hemoglobin unknown but was 7.1 in September of last year. Iron
deficiency anemia noted on labs explaining chronic anemia.
Hyponatremia - Etiology unclear but could be related to ascites, diuretic therapy, hypovolemia, etc. urine osmolality 646, urine sodium less than 5.
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 in [place].
Recurrent ascites -I spoke with gastroenterology. Interventional radiology is willing to place a Pleurx catheter on discharge given that he will be going onto hospice. Will need daily drainage for patient's comfort. likely placement when has NH to
go to on hospice.
Gastroesophageal varices
History of gastric ulcer
History of rectal cancer
Essential hypertension -relative hypotension, blood pressure 105/65. Hold antihypertensives for now.
Hypothyroidism -awaiting update of home medication list. TSH 18, free T4 0.49.
Severe protein calorie malnutrition
Stage 1 middle coccyx pressure injury, POA
DNR -confirmed with patient.
Dispo -he remains appropriate for hospice but he also lacks insight and cannot make decisions on his own. His POA is his his ex-. He also has a daughter. Family has decided on pursuing hospice. CM aware of placement. patient does not meet
criteria for inpatient at this time. There was also a question if facilities can accept patient with Asept catheter; Asept catheter is for comfort and can be drained daily per patient's comfort. receiving facility to change asept drainage orders per
his comfort.
s/p asept for comfort 07/27. Currently feeling better. Plan for hospice today.
Anticipated Discharge: Today
Subjective/Interval History
-
Date of Service: July 29, 2023
denies pain
Objective Data
-
Vital Signs:
Vital Signs
Temp Pulse Resp BP Pulse Ox
97.8 F 73 20 118/67 97
07/28/23 19:52 07/29/23 07:35 07/29/23 07:35 07/29/23 07:35 07/29/23 09:28
I&O
07/28/23 07/29/23 07/30/23
06:59 06:59 06:59
Intake Total 960 / 960 1440 / 1440
Output Total 100 / 100 4400 / 4400
Balance 860 / 860 -2960 / -2960
--- NOTE | 2023-07-29 10:03 | W.DCSUMMARY ---
Discharge Summary
Discharge Data
Date of Admission: 07/23/23
Date of Discharge: 07/29/23
-
Pending Results: No
Hospital Course
68-year-old male with past medical history of inoperable pancreatic neuroendocrine tumor, gastroesophageal varices, gastric ulcer, rectal cancer, essential hypertension, hypothyroidism came to the hospital with severe vomiting and SBP. Patient was
seen by GI throughout hospitalization. Patient continued to have severe vomiting where x-ray was consistent with severe gastric outlet obstruction. Initially NG tube was placed however patient removed and refused to have another NG tube put in.
Patient also had SBP for which she was started on Rocephin. On this hospitalization patient also had recurrent ascites requiring multiple times paracentesis. Given his inoperable pancreatic neuroendocrine tumor along with gastric outlet
obstruction and SBP patient did not want any further management and agreed on hospice. Given he will be going for hospice, IR placed ASEPT catheter for ascites drainage for his comfort prior to discharge.. Once patient was accepted on hospice, he
was then discharged with instructions to follow-up with his hospice physician.
Discharge Plan
-
Patient Disposition: Other
Discharge Diagnosis/Procedures: Severe vomiting secondary to gastric outlet obstruction
SBP
Recurrent ascites
Acute blood loss anemia
Inoperable pancreatic neuroendocrine tumor
Condition: Fair
Additional Diets: prefer liquid diet
Activity: As tolerated
Driving Restrictions: No driving
Bathing Restrictions: None
Other Services: Hospice
Activity Restrictions/Additional Instructions:
Aseptic catheter can be drained daily or every other day as needed for patient comfort
Referrals:
NONE,* [Family Provider] - in less than 1 week
Prescriptions:
New
docusate sodium 100 mg Capsule
100 mg PO BID Qty: 0 0RF
polyethylene glycol 3350 [HealthyLax] 17 gram Powder In Packet
17 g PO DAILY Qty: 0 0RF
scopolamine base 1 mg over 3 days Patch 3 Day
1 patch transdermal Q72H Qty: 0 0RF
morphine concentrate 100 mg/5 mL (20 mg/mL) Solution
5 mg PO Q3HPRN PRN (Reason: moderate pain and/or dyspnea) Qty: 15 0RF
Rx Instructions:
5mg or 0.25mL every 3 hours as needed
prochlorperazine maleate [Compazine] 10 mg Tablet
10 mg PO Q6HPRN PRN (Reason: nausea/vomiting) Qty: 16 0RF
Continued
pantoprazole 40 mg Tablet,Delayed Release (Dr/Ec)
40 mg PO BID
Discontinued
furosemide 40 mg Tablet
40 mg PO DAILY
carvedilol 6.25 mg Tablet
6.25 mg PO BID
sertraline 100 mg Tablet
150 mg PO DAILY
diphenoxylate-atropine 2.5-0.025 mg Tablet
1 tab PO QIDPRN PRN (Reason: diarrhea)
levothyroxine 50 mcg Tablet
50 mcg PO DAILY
Discharge Orders:
Discharge Patient (As Directed); Ordered 07/29/23
Ordered By: Miky Hernandez
Discharge Date and Time
Discharge Date/Time: 07/29/23 11:09
Print Language: LATVIAN
--- NOTE | 2023-07-29 11:06 | PTCARENOTE ---
pt discharged to facility for hospice care at 1105. report given to EMS crew and daughter was called about pt on his way to facility. she will be meeting him there. all belongings and cords removed from the room prior to discharge.
== END 2023-07-29 11:09 | disposition hospice, inpatient (51) | DRG 377 ==
LOC: 2 NORTH 07:59
PROVIDERS: Nurse Practitioner Family; Physician Assistant; Radiology Vascular & Interventional Radiology; ADMITTING PHYSICIAN Hospitalist; ATTENDING PHYSICIAN Internal Medicine; CONSULT PHYSICIAN Internal Medicine; EMERGENCY PHYSICIAN Student in an Organized Health Care Education/Training Program
PROC: 0W9G3ZZ Drainage of Peritoneal Cavity, Percutaneous Approach (ICD-10-PCS; 2023-07-23)
PROC: 30233N1 Transfusion of Nonautologous Red Blood Cells into Peripheral Vein, Percutaneous Approach (ICD-10-PCS; 2023-07-23)
PROC: 0WHG33Z Insertion of Infusion Device into Peritoneal Cavity, Percutaneous Approach (ICD-10-PCS; 2023-07-28)
DX: K92.2 Gastrointestinal hemorrhage, unspecified (principal); E43 Unspecified severe protein-calorie malnutrition; K65.2 Spontaneous bacterial peritonitis; R18.8 Other ascites; R64 Cachexia; D62 Acute posthemorrhagic anemia; E87.1 Hypo-osmolality and hyponatremia; K31.1 Adult hypertrophic pyloric stenosis; Z68.1 Body mass index [BMI] 19.9 or less, adult; Z87.891 Personal history of nicotine dependence; Z66 Do not resuscitate; E03.9 Hypothyroidism, unspecified; I10 Essential (primary) hypertension; D3A.8 Other benign neuroendocrine tumors; L89.101 Pressure ulcer of unspecified part of back, stage 1
CPT/HCPCS: 88305; 49083; 49418; 74018; 74022; 80053; 82042; 82248; 82607; 82728; 82746; 83540; 83550; 83615; 83690; 83935; 84157; 84300; 84439; 84443; 85014; 85018; 85025; 85045; 85610; 86850; 86900; 86901; 86920; 87015; 87040; 87070; 87205; 88112; 88341; 88342; 89051; 96374; 96375; 99152; 99153; 99285; P9016; P9047